=== PATIENT | female | born 1970 | race American Indian/Alaskan Native ===

== ENCOUNTER 2016-03-24 11:48 | Inpatient (IN) | payer SELFPAY ==
[2016-03-24] MEDS ORDERED: ZOFRAN IV ONE ×2 (12:50→23:30)
--- NOTE | 2016-03-24 12:50 | Emergency Department Report ---
Chief Complaint: Dizziness Stated Complaint: DIZZINESS - HPI History of Present Illness: Patient c/o sudden onset dizziness, right arm weakness and numbness, left jaw pain since this morning. Reports hx of stroke 2008. Denies chest pain, SOB, syncope. LMP 3 days ago. - Exam Vital Signs: Vital Signs 03/24/16 11:56 Temperature 98.5 F Pulse Rate 96 H Respiratory 20 Rate Blood Pressure 128/95 O2 Sat by Pulse 99 Oximetry Physical Exam: General: Moderate discomfort. Active vomiting/retching. Neuro: some slurring of speech. + asymmetric facial expression. No arm drift. Symmetric upper and lower extremity strength against resistance. MSE screening note: Focused history and physical exam performed. Due to findings the following was ordered: ED Medical Decision Making - Medical Decision Making Patient to see MD in main ED. ED Disposition for MSE Condition: Stable
[2016-03-24 14:03] LABS: Basophils % (Auto) 0.2 % (0.0-1.8); Eosinophils % (Auto) 0.7 % (0.0-4.3); Hematocrit 34.6 % (30.3-42.9); Hemoglobin 11.3 gm/dl (10.1-14.3); Mean Corpuscular HGB Conc 33 % (30-34); Mean Corpuscular Hemoglobin 27 pg (28-32); Mean Corpuscular Volume 84 fl (79-97); Platelet Count 284 K/mm3 (140-440); Red Blood Count 4.14 M/mm3 (3.65-5.03); Red Cell Distribution Width 16.9 % (13.2-15.2); White Blood Count 7.3 K/mm3 (4.5-11.0)
[2016-03-24 14:12] LABS: INR 0.98 (0.87-1.13); Partial Thromboplastin Time 26.2 Sec. (24.2-36.6)
[2016-03-24 14:22] LABS: Anion Gap 20 mmol/L; BUN/Creatinine Ratio 18.57; Blood Urea Nitrogen 13 mg/dL (7-17); Calcium 8.9 mg/dL (8.4-10.2); Carbon Dioxide 24 mmol/L (22-30); Chloride 104.1 mmol/L (98-107); Glucose 118 mg/dL (65-100); Potassium 4.2 mmol/L (3.6-5.0); Sodium 144 mmol/L (137-145)
--- NOTE | 2016-03-24 15:39 | Cat Scan Report ---
CT HEAD WITHOUT CONTRAST: HISTORY: CVA. Serial contiguous axial images were obtained through the cranium. Intravenous contrast material was not administered. The ventricles are normal in size and appearance. There is no mass effect or midline shift. No areas of abnormally increased or decreased attenuation are seen. No mass lesion is seen. The mastoid air cells and visualized portions of the sinuses are normal. IMPRESSION: Cranial CT scan within normal limits.
[2016-03-25] MEDS ORDERED: ANTIVERT PO ONE (00:37)
--- NOTE | 2016-03-25 00:43 | Emergency Department Report ---
HPI - General Chief Complaint: Dizziness Time Seen by Provider: 03/25/16 00:23 - HPI HPI: Room 21 The patient is a 45-year-old female presenting with chief complaint of dizziness and syncope. Patient states she went to work this morning at 08:30 began to feel dizzy for approximately 30 minutes. Patient states the dizziness slowly subsided and eventually she went to lunch. At 10:45 after lunch she states the dizziness returned and worsened. The patient states his dizziness has been constant since 10:45. The patient states she sat down and coworkers were fanning her. Coworkers reported the patient had slurred speech and then lost consciousness. Patient complained of intermittent right hand numbness. Patient admits to nausea and dizziness. 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 Approximately 3-4 beers and 2 mixed drinks daily) - Medications Home Medications: Home Medications Medication Instructions Recorded Confirmed Last Taken Type ALBUTEROL Inhaler [ProAir HFA 2 puff IH QID PRN #1 inha 01/29/16 Unknown Rx Inhaler] Azithromycin [Zithromax TAB] 250 mg PO QDAY #5 tablet 01/29/16 Unknown Rx predniSONE [Deltasone] 20 mg PO QDAY #5 tab 01/29/16 Unknown Rx ED Review of Systems ROS: Stated complaint: DIZZINESS Other details as noted in HPI Comment: All other systems reviewed and negative Constitutional: denies: chills, fever Eyes: denies: eye pain, eye discharge, vision change ENT: denies: ear pain, throat pain Respiratory: denies: cough, shortness of breath, wheezing Cardiovascular: denies: chest pain, palpitations Endocrine: no symptoms reported Gastrointestinal: nausea, vomiting Genitourinary: denies: urgency, dysuria, discharge Musculoskeletal: denies: back pain, joint swelling, arthralgia Skin: denies: rash, lesions Neurological: vertigo. denies: headache Psychiatric: denies: anxiety, depression Hematological/Lymphatic: denies: easy bleeding, easy bruising Physical Exam - Physical Exam Vital Signs: Vital Signs 03/24/16 03/24/16 03/25/16 11:56 23:11 00:10 Temperature 98.5 F 98.4 F 98.4 F Pulse Rate 96 H 93 H 82 Respiratory 20 18 12 Rate Blood Pressure 128/95 Blood Pressure 128/92 119/68 [Right] O2 Sat by Pulse 99 97 97 Oximetry Physical Exam: GENERAL: The patient is well-developed well-nourished female lying on stretcher not appearing to be in acute distress. [] HEENT: Normocephalic. Atraumatic. Extraocular motions are intact. Patient has moist mucous membranes. 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 Right lateral nystagmus present NECK: Supple. No meningitic signs are noted. Trachea midline CHEST/LUNGS: Clear to auscultation. There is no respiratory distress noted. HEART/CARDIOVASCULAR: Regular. There is no tachycardia. There is no gallop rub or murmur. ABDOMEN: Abdomen is soft, nontender. Patient has normal bowel sounds. There is no abdominal distention. SKIN: There is no rash. There is no edema. There is no diaphoresis. NEURO: The patient is awake, alert, and oriented. The patient is cooperative. Cranial nerves II through XII grossly intact with exception of cranial nerve VII on the left secondary to Rhodes's palsy. The patient has normal speech. Paper Spooler 5+5 bilaterally, no drift, normal sensation throughout. There is no pronator drift, moves all extremities well MUSCULOSKELETAL: There is no evidence of acute injury. ED Course Vital Signs 03/24/16 03/24/16 03/25/16 11:56 23:11 00:10 Temperature 98.5 F 98.4 F 98.4 F Pulse Rate 96 H 93 H 82 Respiratory 20 18 12 Rate Blood Pressure 128/95 Blood Pressure 128/92 119/68 [Right] O2 Sat by Pulse 99 97 97 Oximetry ED Medical Decision Making - Lab Data Result diagrams: 03/24/16 13:46 03/24/16 13:46 Laboratory Tests 03/24/16 03/24/16 03/24/16 12:17 13:46 13:46 WBC 7.3 RBC 4.14 Hgb 11.3 Hct 34.6 MCV 84 MCH 27 L MCHC 33 RDW 16.9 H Plt Count 284 Lymph % (Auto) 12.3 L [place] % (Auto) 4.4 Eos % (Auto) 0.7 Baso % (Auto) 0.2 Lymph # 0.9 L [place] # 0.3 Eos # 0.0 Baso # 0.0 Seg Neutrophils % 82.4 H Seg Neutrophils # 6.1 PT 12.9 INR 0.98 APTT 26.2 Thrombin Time Sodium Potassium Chloride Carbon Dioxide Anion Gap BUN Creatinine Estimated GFR BUN/Creatinine Ratio Glucose POC Glucose 116 H Calcium Troponin T 03/24/16 03/24/16 13:46 13:46 WBC RBC Hgb Hct MCV MCH MCHC RDW Plt Count Lymph % (Auto) [place] % (Auto) Eos % (Auto) Baso % (Auto) Lymph # [place] # Eos # Baso # Seg Neutrophils % Seg Neutrophils # PT INR APTT Thrombin Time 16.3 Sodium 144 Potassium 4.2 Chloride 104.1 Carbon Dioxide 24 Anion Gap 20 BUN 13 Creatinine 0.7 Estimated GFR > 60 BUN/Creatinine Ratio 18.57 Glucose 118 H POC Glucose Calcium 8.9 Troponin T < 0.010 - EKG Data -: EKG Interpreted by Me EKG shows normal: sinus rhythm Rate: normal - EKG Data When compared to previous EKG there are: no significant change Interpretation: unchanged when compared t (03/27/2015) - Radiology Data Radiology results: report reviewed (CT head), image reviewed (CT head) CT head (read by radiologist)-cranial CT scan within normal limits - Differential Diagnosis vertigo, TIA, ICH Critical care attestation.: If time is entered above; I have spent that time in minutes in the direct care of this critically ill patient, excluding procedure time. ED Disposition Clinical Impression: Syncope, Dizziness, Transient neurological symptoms Disposition: OP ADMITTED IP TO THIS HOSP Is pt being admited?: Yes Does the pt Need Aspirin: Yes Condition: Fair Instructions: Syncope (ED) Time of Disposition: 00:45 (hospitalist paged)
--- NOTE | 2016-03-25 01:18 | Admit Criteria Form ---
Admission Criteria Documentation: DIZZINESS Clinical Indications for Admission to Inpatient Care (Place 'X' for any and all applicable criteria): Admission is indicated for ANY ONE of the following(1)(2)(3)(4): [X]I. Inpatient admission required rather than observation care (Also use Dizziness: Observation Care as appropriate) because of ANY ONE of the following: [ ]a) Hemodynamic instability that is severe or persistent [ X]b) Signs or symptoms that are severe or persistent (eg, vomit, orthostasis, inability to ambulate) [ ]c) Cardiac arrhythmias of immediate concern [ ]d) Severe (new) neurologic findings requiring inpatient care as indicated by ANY ONE of the following(6)(7): [ ]1) Cerebral bleeding, ischemia, or vasospasm(8)(9) [ ]2) Increased intracranial pressure or hydrocephalus(10)(11)(12) [ ]3) Papilledema [ ]4) Cerebral edema [ ]5) Mass effect on CT scan [ ]e) Continuous IV infusion of anticoagulation, platelet inhibitor, vasoactive, or antiarrhythmic medication [ ]f) Cerebral bleeding, hydrocephalus, or vasospasm monitoring(14) [ ]g) Increased intracranial pressure or cerebral edema monitoring [ ]h) Vomiting that is severe or persistent [ ]i) Other condition, treatment or monitoring requiring inpatient admission [ ]II. A suspected etiology that requires admission for treatment [ ]III. Acute bacterial labyrinthitis [ ]IV. Cerebellar, brainstem, or cerebral ischemia or hemorrhage (5) Extended stay beyond goal length of stay may be needed for evaluating and treating a specific cause of dizziness, including(32) [ ]a) Head injury (Also use Traumatic Brain Injury, Nonsurgical Treatment guideline) [ ]b) New-onset vertebrobasilar vascular insufficiency [ ]c) Acute Meniere disease with intractable symptoms [ ]d) Cardiac arrhythmias or conduction defects [ ]e) Acute neurologic event causing dizziness [ ]f) Myocardial ischemia [ ]g) Acute bacterial labyrinthitis. [ ]h) Severe acute vestibular neuronitis The original [employer] content created by [employer] has been revised. The portions of the content which have been revised are identified through the use of italic text or in bold, and [employer] has neither reviewed nor approved the modified material. All other unmodified content is copyright [facility]. Please see references footnoted in the original [facility] edition 2016 Admission Criteria Met: Yes
--- NOTE | 2016-03-25 02:18 | History and Physical Report ---
History of Present Illness Date of examination: 03/25/16 History of present illness: 45 -year-old woman a history of CVA, benign tumor of the brain, asthma, Rhodes's palsy comes emergency room because she felt faint at work. Also complaining of feeling dizzy and almost passing out. She was also noted to have slurred speech , it's unclear how long the symptoms last for Patient denies chest pain, palpitation, shortness of breath, cough, abdominal pain, hematochezia, dysuria, frequency, , fever chills, polydipsia polyuria, hot or cold intolerance, easy bruisability, or rash or bleeding from mucosal membrane, rhinorrhea, epistaxis, earache, tinnitus, blurry vision, eye discharge , anxiety, depression. Other review of systems negative PAST SURGICAL HISTORY:tubal ligation SOCIAL HISTORY: 4 beers/ days plus Shots, no tobacco or drugs FAMILY HISTORY: Hypertension Medications and Allergies Allergies Allergy/AdvReac Type Severity Reaction Status Date / Time ibuprofen [From Motrin] AdvReac Unknown Verified 03/27/15 05:59 Home Medications Medication Instructions Recorded Confirmed Last Taken Type ALBUTEROL Inhaler [ProAir HFA 2 puff IH QID PRN #1 inha 01/29/16 03/25/16 Unknown Rx Inhaler] Exam - Physical Exam Narrative exam: Gen. appearance: Patient lying in bed, no apparent distress HEENT: Normocephalic, atraumatic, pupils equally round and reactive to light, extraocular movement intact, and no sclericterus,. No JVD or thyromegaly or nodule,neck supple, no carotid bruit ,mucous membranes moist, no exudate or erythema Heart: S1, S2, regular rate and rhythm Lungs: Clear to auscultation bilaterally, breathing comfortable Abdomen: Positive bowel sounds, nontender, nondistended, no organomegaly Extremity: No edema, cyanosis, clubbing Skin: No rash, nodules, warm, dry Neuro: Oriented 3, cranial nerves II-12 intact, speech is fluent, right arm 4/5 , no paresthesia - Constitutional Vitals: Temp Pulse Resp BP Pulse Ox 98.4 F 82 12 119/68 97 03/25/16 00:10 03/25/16 00:10 03/25/16 00:10 03/25/16 00:10 03/25/16 00:10 Results - Labs CBC & Chem 7: 03/24/16 13:46 03/24/16 13:46 Labs: Abnormal lab results 03/24/16 03/24/16 03/24/16 Range/Units 12:17 13:46 13:46 MCH 27 L (28-32) pg RDW 16.9 H (13.2-15.2) % Lymph % (Auto) 12.3 L (13.4-35.0) % Lymph # 0.9 L (1.2-5.4) K/mm3 Seg Neutrophils % 82.4 H (40.0-70.0) % Glucose 118 H (65-100) mg/dL POC Glucose 116 H (70-105) - Imaging and Cardiology CT Scan - head: report reviewed Assessment and Plan Acute CVA Near-syncope Asthma 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
[2016-03-25] MEDS ORDERED: REGLAN PO PRN (08:28)
[2016-03-25] MEDS ORDERED: MILK OF MAGNESIA PO PRN (08:28)
[2016-03-25] MEDS ORDERED: SODIUM CHLORIDE FLUSH SYRINGE 10 ML IV PRN (08:28)
[2016-03-25] MEDS ORDERED: DULCOLAX PR PRN (08:28)
[2016-03-25] MEDS ORDERED: ZOFRAN IV PRN (08:28)
[2016-03-25 09:12] LABS: Creatine Kinase 134 units/L (30-135); Creatine Kinase MB 1.4 ng/mL (0.0-4.0)
[2016-03-25] MEDS ORDERED: NACL ONE (09:50)
[2016-03-25] MEDS: LOVENOX SUB-Q SCH (10:20)
[2016-03-25] MEDS: PLAVIX PO SCH (10:20)
--- NOTE | 2016-03-25 14:02 | Cat Scan Report ---
CT ANGIOGRAPHY OF THE CHEST: HISTORY: Chest pain and dyspnea. FINDINGS: There is no evidence of pulmonary emboli. The lungs are clear. There is no pleural fluid. The mediastinum and hilar regions are normal. There are no axillary abnormalities. IMPRESSION: Normal study.
--- NOTE | 2016-03-25 16:39 | Magnetic Resonance Report ---
MRI of the brain without contrast. Procedure: Routine brain protocol without contrast. Findings: The posterior fossa is normal. The ventricles are normal in size and contour. There are no masses or extra-axial collections. The mahan-white matter junction is normal. There are no areas of restricted diffusion. The pituitary gland is normal. The visualized extracranial structures are unremarkable. Impression: Normal study.
--- NOTE | 2016-03-25 18:11 | Echocardiography Report ---
Transthoracic Echocardiogram Indication: CVA BP: 112/66 HR: 82 Findings Procedure Info: The study quality is fair. The study is technically limited due to patient body habitus. Left Ventricle: The left ventricle is not well visualized. The left ventricular chamber size is mildly dilated. Mild concentric left ventricular hypertrophy is observed. Global left ventricular systolic function is at the lower limits of normal. The estimated ejection fraction is 45-50%. Left Atrium: The left atrial chamber size is normal. Right Ventricle: The right ventricle is not well visualized. The right ventricular cavity size is normal. The right ventricular global systolic function is normal. Right Atrium: The right atrium is not well visualized. The right atrial cavity size is normal. Aortic Valve: The aortic valve is not well visualized. The aortic valve leaflets are mildly thickened. There is trace of aortic regurgitation. There is no evidence of aortic stenosis. Mitral Valve: The mitral valve leaflets appear myxomatous. The mitral valve leaflets are mildly thickened. There is mild mitral regurgitation. There is no evidence of mitral stenosis. Tricuspid Valve: The tricuspid valve is not well visualized. There is trace tricuspid regurgitation. No pulmonary hypertension is noted. There is no tricuspid stenosis. Pulmonic Valve: The pulmonic valve is not well visualized. There is trace pulmonic regurgitation. There is no pulmonic stenosis. Pericardium: There is no pericardial effusion. No pleural effusion is present. Aorta: There is no dilatation of the aortic root. Venous: The inferior vena cava is not visualized. Measurements Chambers MM Name Value Normal Range IVSd (MM) 0.72 cm (0.6 - 1.1) LVPWd (MM) 0.67 cm (0.6 - 1.1) IVS:LVPW ratio 1.07 ratio - LVIDd (MM) 5.24 cm (3.7 - 5.6) LVIDs (MM) 3.27 cm (2 - 2.8) LV FS (Teichholz) (MM) 37.6 % - LV FS (cube) (MM) 37.6 % - EF Teichholz (MM) 67.3 % - Ao root diameter (MM) 3.1 cm (2 - 3.7) LA dimension (AP) MM 3.4 cm (1.9 - 4) LA:Ao ratio (MM) 1.1 ratio - AV cusp separation (MM) 2 cm (1.5 - 2.6) Chambers 2D Name Value Normal Range IVSd (2D) 0.62 cm (0.6 - 1.1) LVPWd 0.6 cm - LVPWd (2D) 0.6 cm (0.6 - 1.1) IVS:LVPW ratio (2D) 1.04 ratio - LVIDd 4.3 cm - LVIDs 2.9 cm - LVIDd (2D) 4.31 cm (3.7 - 5.6) LVIDs (2D) 2.92 cm (2 - 3.8) LV FS (Teichholz) (2D) 32.3 % - LV FS (cube) (2D) 32.3 % - LV EF (2D) 60 % - EF Teichholz (2D) 60.7 % - LA dimension 2.9 cm - Ao root diameter (2D) 2.7 cm (2 - 3.7) LA dimension (AP) 2D 2.9 cm (1.9 - 4) LA:Ao ratio (2D) 1.07 ratio - Volumes/Mass Name Value Normal Range LA ESV SP 4CH (MOD) 24 ml - LV EDV SP 4CH (MOD) 114 ml - LV ESV SP 4CH (MOD) 42 ml - EF SP 4CH (MOD) 63 % - Diastolic/Systolic Function Name Value Normal Range MV E-wave Vmax 0.79 m/sec - MV deceleration time 225 msec - MV A-wave Vmax 0.72 m/sec - MV E:A ratio 1.1 ratio - LV septal e' Vmax 0.1 m/sec - LV lateral e' Vmax 0.12 m/sec - LV E:e' septal ratio 8.3 ratio - LV E:e' lateral ratio 6.4 ratio - Aortic Valve Name Value Normal Range AV Vmax 1.38 m/sec - AV VTI 20.7 cm - AV peak gradient 8 mmHg - AV mean gradient 4 mmHg - LVOT diameter 1.8 cm - LVOT Vmax 1.1 m/sec - LVOT peak gradient 5 mmHg - UMM (continuity Vmax) 2.02 cm2 - Tricuspid Valve Name Value Normal Range TR Vmax 2.17 m/sec - TR peak gradient 19 mmHg - Pulmonic Valve/Qp:Qs Name Value Normal Range PV Vmax 0.62 m/sec - PV peak gradient 2 mmHg - PV acceleration time 99 msec -
[2016-03-25 21:35] LABS: Creatine Kinase MB 1.2 ng/mL (0.0-4.0)
[2016-03-25 21:36] LABS: Creatine Kinase 114 units/L (30-135)
[2016-03-25] MEDS ORDERED: ZOCOR PO SCH (22:00)
--- NOTE | 2016-03-26 04:32 | Event Note ---
Date: 03/25/16 Pt seen and evaluated while boarding in ED. Discussed care plan with patient. NO significant new physical exam findings.
[2016-03-26] MEDS: LOVENOX SUB-Q SCH (11:32)
[2016-03-26] MEDS: PLAVIX PO SCH (11:32)
[2016-03-26 11:44] VITALS: BP 122/76
--- NOTE | 2016-03-26 14:24 | Discharge Summary ---
Providers - Providers Date of Admission: 03/25/16 02:13 Date of discharge: 03/26/16 Attending physician: ELISABETH LEE Primary care physician: VP PURCHASING Hospitalization Condition: Fair Disposition: DISCHARGED TO HOME OR SELFCARE Core Measure Documentation - Palliative Care Palliative Care/ Comfort Measures: Not Applicable - Core Measures Any of the following diagnoses?: none Exam - Constitutional Vitals: Temp Pulse Resp BP Pulse Ox 98.7 F 86 20 122/76 100 03/26/16 11:43 03/26/16 11:43 03/26/16 11:43 03/26/16 11:43 03/26/16 11:54 General appearance: Present: no acute distress, well-nourished - EENT Eyes: Present: PERRL, EOM intact - Neck Neck: Present: supple, normal ROM - Respiratory Respiratory effort: normal Respiratory: negative: rales, rhonchi, wheezing - Cardiovascular Rhythm: regular Heart Sounds: Present: S1 & S2 - Extremities Extremities: no ischemia, pulses intact, pulses symmetrical Peripheral Pulses: within normal limits - Abdominal General gastrointestinal: Present: soft, non-tender, non-distended, normal bowel sounds - Integumentary Integumentary: Present: clear, warm - Musculoskeletal Musculoskeletal: strength equal bilaterally, generalized weakness - Psychiatric Psychiatric: appropriate mood/affect, cooperative - Neurologic Neurologic: moves all extremities Plan Activity: advance as tolerated, other (Walker as needed) Diet: low fat, low salt Durable Medical Equipment Needed Upon Discharge: Walker-Rolling Follow up with: PRIMARY CARE, [Primary Care Provider] - 3-5 Days Prescriptions: Clopidogrel [Plavix] 75 mg PO DAILY #30 tablet Simvastatin [Zocor TAB] 20 mg PO QHS #30 tablet
--- NOTE | 2016-03-29 08:13 | Vascular Lab Report ---
CAROTID DUPLEX STUDY: RIGHT PSVEDV CCA PROX:[id number] CCA DIST: 8325 ICA PROX: 5921 ICA MID: 6129 ICA DIST: 5327 ECA: 66 VERT: 46 20 LEFT PSVEDV CCA PROX:[id number] CCA DIST: 7528 ICA PROX: 6318 ICA MID: 7634 ICA DIST: 5529 ECA: 74` VERT: 33 17 REASON FOR EXAM: Stroke. COMMENTS ON THE RIGHT: Doppler frequency analysis is consistent with 16 to 49 percent diameter reduction of the internal carotid artery. Minimal amount of plaque is seen. The common carotid artery is patent. The external carotid artery is patent. The vertebral artery has antegrade flow. COMMENTS ON THE LEFT: Doppler frequency analysis is consistent with 16 to 49 percent diameter reduction of the internal carotid artery. Minimal amount of plaque is seen. The common carotid artery is patent. The external carotid artery is patent. The vertebral artery has antegrade flow. IMPRESSION: Less than 50% diameter reduction in the internal carotid arteries bilaterally. Consider repeat carotid artery duplex in 12 months.
== END 2016-03-26 18:22 | disposition home or self-care (01) | DRG 66 ==
LOC: ED 11:48 → 4A 03-25 02:13
PROVIDERS: ADMIT Internal Medicine; ATTEND Internal Medicine
DX: I63.9 Cerebral infarction, unspecified (principal); G80.8 Other cerebral palsy; G51.0 Bell's palsy; F17.200 Nicotine dependence, unspecified, uncomplicated; J45.909 Unspecified asthma, uncomplicated; Z98.51 Tubal ligation status; Z85.841 Personal history of malignant neoplasm of brain; Z82.49 Family history of ischemic heart disease and other diseases of the circulatory system; Z88.6 Allergy status to analgesic agent
CPT/HCPCS: 36415; 70450; 70551; 71275; 80048; 80061; 82550; 82553; 82962; 84484; 85025; 85379; 85610; 85670; 85730; 93005; 93010; 93306; 93880; 96374; J1650; J2405; Q9967

== ENCOUNTER 2018-06-20 07:47 | Inpatient (IN) | payer SELFPAY ==
[2018-06-20 08:18] LABS: Basophils % (Auto) 0.5 % (0.0-1.8); Eosinophils # (Auto) 0.1 K/mm3 (0.0-0.4); Eosinophils % (Auto) 0.8 % (0.0-4.3); Hematocrit 37.1 % (30.3-42.9); Hemoglobin 12.4 gm/dl (10.1-14.3); Lymphocytes # (Auto) 1.5 K/mm3 (1.2-5.4); Lymphocytes % (Auto) 24.6 % (13.4-35.0); Mean Corpuscular HGB Conc 33 % (30-34); Mean Corpuscular Volume 87 fl (79-97); Monocytes # (Auto) 0.5 K/mm3 (0.0-0.8); Monocytes % (Auto) 7.9 % (0.0-7.3); Platelet Count 310 K/mm3 (140-440); Red Blood Count 4.26 M/mm3 (3.65-5.03); Red Cell Distribution Width 15.6 % (13.2-15.2)
--- NOTE | 2018-06-20 08:25 | Cat Scan Report ---
CT HEAD WITHOUT CONTRAST: HISTORY: Neurological deficit, stroke. TECHNIQUE: Sequential 2.5mm CT images. COMPARISON: 03/07/18. FINDINGS: Cerebral Parenchyma: Within normal limits. Cerebellum: Within normal limits. Brainstem: Within normal limits. Ventricles: Normal. Sella: Normal. Extra-axial spaces: Normal. Basal Cisterns: Normal. Intracranial Hemorrhage: None. Midline Shift: None. Calvarium: Normal. Sinuses: Normal. Mastoid Air Cells: Normal. Visualized Orbits: Normal. IMPRESSION: Cranial CT scan within normal limits. These findings were discussed with Dr. Trejo in the emergency department at 0818 hours EST.
[2018-06-20 08:28] LABS: INR 0.97 (0.87-1.13)
[2018-06-20 08:29] LABS: Partial Thromboplastin Time 26.9 Sec. (24.2-36.6); Thrombin Time 17.2 Sec. (15.1-19.6)
[2018-06-20 08:32] LABS: BUN/Creatinine Ratio 14; Blood Urea Nitrogen 7 mg/dL (7-17); Calcium 8.7 mg/dL (8.4-10.2); Hemolysis Index 8
--- NOTE | 2018-06-20 08:39 | Emergency Department Report ---
ED Neuro Deficit HPI - General Chief Complaint: Neuro Symptoms/Deficit Stated Complaint: THROAT/CHEST/EAR PAIN Time Seen by Provider: 06/20/18 08:01 Source: patient Mode of arrival: Ambulatory Limitations: No Limitations - History of Present Illness Initial Comments: [facility] TeleNeurology Consult Services Impression: Stroke, small vessel, right hemispheric? previous left facial weakness, now with worsening dysarthria Not a tpa candidate due to: out of therapeutic window Does not meet LVO screening criteria (no aphasia, neglect, gaze deviation, dense hemiparesis, visual field deficits on exam); therefore, advanced imaging not recommended. Differential Diagnosis: 1. Cardioembolic stroke 2. Small vessel disease/lacune 3. Thromboembolic, [id number] mechanism 4. Hypercoagulable state-related infarct 5. Transient ischemic attack 6. Thrombotic mechanism, large artery disease Comments: [facility] contacted: [phone] [facility] at bedside: 809 NIHSS assessment time: 809 Recommendations: admit stroke/telemetry neuro checks dvt prophy dysphagia screen asa if no contraindications head of bed flat iv fluids ns inpatient neurology consultation Inpatient stroke evaluation as per Neurology/ Internal Medicine Discussed with ED MD --------- CC dysarthria History of Present Illness Patient is a 47 year old woman who comes to the Ed for slurred speech and difficulty swallowing since yesterday. She also has worsening left facial weakness. The symptoms started around 1400 yesterday and worsened around midni ght today. Previous stroke with left facial weakness. Last stroke in 2018, she takes Plavix. Diagnostic: Ct head without contrast: no acute findings per rad read Medical Decision Making: - Extensive number of diagnosis or management options are considered above. - Extensive amount of complex data reviewed. - High risk of complication and/or morbidity or mortality are associated with differential diagnostic considerations above. - There may be Uncertain outcome and increased probability of prolonged functional impairment or high probability of severe prolonged functional impairment associated with some of these differential diagnosis. Medical Data Reviewed: 1.Data reviewed include clinical labs, radiology, Medical Tests; 2.Tests results discussed w/performing or interpreting physician; 3.Obtaining/reviewing old medical records; 4.Obtaining case history from another source; 5.Independent review of image, tracing or specimen. Patient was informed the Neurology Consult would happen via telehealth (remote video) and consented to receiving care in this manner. - Related Data Home Medications: Previous Rx's Medication Instructions Recorded Last Taken Type ALBUTEROL Inhaler (OR & NICU) 2 puff IH QID PRN #1 inha 03/10/18 Unknown Rx [ProAir HFA Inhaler] Clopidogrel [Plavix] 75 mg PO DAILY #30 tablet 03/10/18 Unknown Rx Pravastatin [Pravachol] 40 mg PO QHS #30 tablet 03/10/18 Unknown Rx levETIRAcetam [Keppra TAB] 750 mg PO BID #60 tablet 03/10/18 Unknown Rx oxyCODONE /ACETAMINOPHEN [Percocet 1 tab PO Q4H PRN #20 tablet 03/10/18 Unknown Rx 5/325 mg] Allergies/Adverse Reactions: Allergies Allergy/AdvReac Type Severity Reaction Status Date / Time ibuprofen [From Motrin] AdvReac Unknown Verified 03/27/15 05:59 ED Review of Systems ROS: Stated complaint: THROAT/CHEST/EAR PAIN Other details as noted in HPI ED Past Medical Hx - Past Medical History Hx CVA: Yes (2008 no deficiets) Hx Arthritis: Yes Hx Asthma: Yes Additional medical history: BELLS PALSY (left facial weakness), Brain tumor - Surgical History Additional Surgical History: Tubal ligation - Social History Smoking Status: Never Smoker - Medications Home Medications: Home Medications Medication Instructions Recorded Confirmed Last Taken Type ALBUTEROL Inhaler (OR & NICU) 2 puff IH QID PRN #1 inha 03/10/18 Unknown Rx [ProAir HFA Inhaler] Clopidogrel [Plavix] 75 mg PO DAILY #30 tablet 03/10/18 Unknown Rx Pravastatin [Pravachol] 40 mg PO QHS #30 tablet 03/10/18 Unknown Rx levETIRAcetam [Keppra TAB] 750 mg PO BID #60 tablet 03/10/18 Unknown Rx oxyCODONE /ACETAMINOPHEN [Percocet 1 tab PO Q4H PRN #20 tablet 03/10/18 Unknown Rx 5/325 mg] ED Neuro Physical Exam - General Limitations: No Limitations Suspected Stroke: Yes - NIHSS Assessment Interval: Baseline 1a. Level of Consciousness: alert/keenly responsive 1b. LOC Questions: answers both correctly 1c. LOC Commands: performs tasks correctly 2. Best Gaze: normal 3. Visual: no visual loss 4. Facial Palsy: partial paralysis 5b. Motor Arm Right: no drift 5a. Motor Arm Left: no drift 6a. Motor Leg Left: no drift 6b. Motor Leg Right: no drift 7. Limb Ataxia: absent 8. Sensory: mild/moderate sensory loss 9. Best Language: no aphasia 10. Dysarthria: mild/moderate dysarthria 11. Extinction/Inattention: no abnormality Total Score: 4 Stroke Severity: Minor Stroke ED Course Vital Signs 06/20/18 06/20/18 08:08 08:15 Pulse Rate 100 H 96 H Respiratory 15 Rate Blood Pressure 149/98 O2 Sat by Pulse 97 Oximetry - Lab Data Result diagrams: 06/20/18 08:11 06/20/18 08:10 Lab Results 06/20/18 06/20/18 06/20/18 Range/Units 07:59 08:10 08:11 WBC 6.3 (4.5-11.0) K/mm3 RBC 4.26 (3.65-5.03) M/mm3 Hgb 12.4 (10.1-14.3) gm/dl Hct 37.1 (30.3-42.9) % MCV 87 (79-97) fl MCH 29 (28-32) pg MCHC 33 (30-34) % RDW 15.6 H (13.2-15.2) % Plt Count 310 (140-440) K/mm3 Lymph % (Auto) 24.6 (13.4-35.0) % [place] % (Auto) 7.9 H (0.0-7.3) % Eos % (Auto) 0.8 (0.0-4.3) % Baso % (Auto) 0.5 (0.0-1.8) % Lymph # 1.5 (1.2-5.4) K/mm3 [place] # 0.5 (0.0-0.8) K/mm3 Eos # 0.1 (0.0-0.4) K/mm3 Baso # 0.0 (0.0-0.1) K/mm3 Seg Neutrophils % 66.2 (40.0-70.0) % Seg Neutrophils # 4.1 (1.8-7.7) K/mm3 PT (12.2-14.9) Sec. INR (0.87-1.13) APTT (24.2-36.6) Sec. Thrombin Time (15.1-19.6) Sec. Sodium 144 (137-145) mmol/L Potassium 3.9 (3.6-5.0) mmol/L Chloride 105.1 (98-107) mmol/L Carbon Dioxide 26 (22-30) mmol/L Anion Gap 17 mmol/L BUN 7 (7-17) mg/dL Creatinine 0.5 L (0.7-1.2) mg/dL Estimated GFR > 60 ml/min BUN/Creatinine Ratio 14 % Glucose 143 H (65-100) mg/dL POC Glucose 139 H (70-105) Calcium 8.7 (8.4-10.2) mg/dL Troponin T < 0.010 (0.00-0.029) ng/mL 06/20/18 Range/Units 08:11 WBC (4.5-11.0) K/mm3 RBC (3.65-5.03) M/mm3 Hgb (10.1-14.3) gm/dl Hct (30.3-42.9) % MCV (79-97) fl MCH (28-32) pg MCHC (30-34) % RDW (13.2-15.2) % Plt Count (140-440) K/mm3 Lymph % (Auto) (13.4-35.0) % [place] % (Auto) (0.0-7.3) % Eos % (Auto) (0.0-4.3) % Baso % (Auto) (0.0-1.8) % Lymph # (1.2-5.4) K/mm3 [place] # (0.0-0.8) K/mm3 Eos # (0.0-0.4) K/mm3 Baso # (0.0-0.1) K/mm3 Seg Neutrophils % (40.0-70.0) % Seg Neutrophils # (1.8-7.7) K/mm3 PT 13.5 (12.2-14.9) Sec. INR 0.97 (0.87-1.13) APTT 26.9 (24.2-36.6) Sec. Thrombin Time 17.2 (15.1-19.6) Sec. Sodium (137-145) mmol/L Potassium (3.6-5.0) mmol/L Chloride (98-107) mmol/L Carbon Dioxide (22-30) mmol/L Anion Gap mmol/L BUN (7-17) mg/dL Creatinine (0.7-1.2) mg/dL Estimated GFR ml/min BUN/Creatinine Ratio % Glucose (65-100) mg/dL POC Glucose (70-105) Calcium (8.4-10.2) mg/dL Troponin T (0.00-0.029) ng/mL Critical care attestation.: If time is entered above; I have spent that time in minutes in the direct care of this critically ill patient, excluding procedure time. ED Disposition Clinical Impression: Stroke determined by clinical assessment Disposition: OP ADMIT IP TO THIS HOSP Is pt being admited?: Yes Condition: Stable Referrals: LAQUITA GONZALEZ MD [Primary Care Provider] - 3-5 Days
--- NOTE | 2018-06-20 10:52 | Emergency Department Report ---
ED General Adult HPI - General Chief complaint: Neuro Symptoms/Deficit Stated complaint: THROAT/CHEST/EAR PAIN Time Seen by Provider: 06/20/18 08:01 Source: patient Mode of arrival: Ambulatory Limitations: No Limitations - History of Present Illness Initial comments: Patient is a 47-year-old female no significant past medical history who presents with left facial droop that occurred today patient denies any nausea or vomiting she says this occurred around 2 PM yesterday. Patient is also complaining of slurred speech but has no altered mental status talking makes the symptoms better nothing makes it worse. She says this happened in 2018 patient denies being in any pain. - Related Data Previous Rx's Medication Instructions Recorded Last Taken Type ALBUTEROL Inhaler (OR & NICU) 2 puff IH QID PRN #1 inha 03/10/18 Unknown Rx [ProAir HFA Inhaler] Clopidogrel [Plavix] 75 mg PO DAILY #30 tablet 03/10/18 Unknown Rx Pravastatin [Pravachol] 40 mg PO QHS #30 tablet 03/10/18 Unknown Rx levETIRAcetam [Keppra TAB] 750 mg PO BID #60 tablet 03/10/18 Unknown Rx oxyCODONE /ACETAMINOPHEN [Percocet 1 tab PO Q4H PRN #20 tablet 03/10/18 Unknown Rx 5/325 mg] Allergies Allergy/AdvReac Type Severity Reaction Status Date / Time ibuprofen [From Motrin] AdvReac Unknown Verified 03/27/15 05:59 ED Review of Systems ROS: Stated complaint: THROAT/CHEST/EAR PAIN Other details as noted in HPI Constitutional: denies: chills, fever Eyes: denies: eye pain, eye discharge, vision change ENT: denies: ear pain, throat pain Respiratory: denies: cough, shortness of breath, wheezing Cardiovascular: denies: chest pain, palpitations Endocrine: no symptoms reported Gastrointestinal: denies: abdominal pain, nausea, diarrhea Genitourinary: denies: urgency, dysuria, discharge Musculoskeletal: denies: back pain, joint swelling, arthralgia Skin: denies: rash, lesions Neurological: other (left facial droop). denies: headache, weakness, paresthesias Psychiatric: denies: anxiety, depression Hematological/Lymphatic: denies: easy bleeding, easy bruising ED Past Medical Hx - Past Medical History Hx CVA: Yes (2009 no deficiets) Hx Arthritis: Yes Hx Asthma: Yes Additional medical history: BELLS PALSY (left facial weakness), Brain tumor - Surgical History Additional Surgical History: Tubal ligation - Social History Smoking Status: Never Smoker - Medications Home Medications: Home Medications Medication Instructions Recorded Confirmed Last Taken Type ALBUTEROL Inhaler (OR & NICU) 2 puff IH QID PRN #1 inha 03/10/18 Unknown Rx [ProAir HFA Inhaler] Clopidogrel [Plavix] 75 mg PO DAILY #30 tablet 03/10/18 Unknown Rx Pravastatin [Pravachol] 40 mg PO QHS #30 tablet 03/10/18 Unknown Rx levETIRAcetam [Keppra TAB] 750 mg PO BID #60 tablet 03/10/18 Unknown Rx oxyCODONE /ACETAMINOPHEN [Percocet 1 tab PO Q4H PRN #20 tablet 03/10/18 Unknown Rx 5/325 mg] ED Physical Exam - General Limitations: No Limitations General appearance: alert, in no apparent distress - Head Head exam: Present: atraumatic, normocephalic - Eye Eye exam: Present: normal appearance - ENT ENT exam: Present: mucous membranes moist - Neck Neck exam: Present: normal inspection - Respiratory Respiratory exam: Present: normal lung sounds bilaterally. Absent: respiratory distress - Cardiovascular Cardiovascular Exam: Present: regular rate, normal rhythm. Absent: systolic murmur, diastolic murmur, rubs, gallop - GI/Abdominal GI/Abdominal exam: Present: soft, normal bowel sounds - Extremities Exam Extremities exam: Present: normal inspection - Back Exam Back exam: Present: normal inspection - Neurological Exam Neurological exam: Present: alert, oriented X3, other (left CN 7 palsy ) - Psychiatric Psychiatric exam: Present: normal affect, normal mood - Skin Skin exam: Present: warm, dry, intact, normal color. Absent: rash ED Course Vital Signs 06/20/18 06/20/18 06/20/18 08:08 08:15 08:30 Pulse Rate 100 H 96 H 96 H Respiratory 15 14 Rate Blood Pressure 149/98 139/93 O2 Sat by Pulse 97 95 Oximetry 06/20/18 06/20/18 08:42 08:45 Pulse Rate 91 H Respiratory 18 16 Rate Blood Pressure 133/81 O2 Sat by Pulse 97 Oximetry ED Medical Decision Making - Lab Data Result diagrams: 06/20/18 08:11 04/09/19 08:10 Lab Results 06/20/18 06/20/18 06/20/18 Range/Units 07:59 08:10 08:11 WBC 6.3 (4.5-11.0) K/mm3 RBC 4.26 (3.65-5.03) M/mm3 Hgb 12.4 (10.1-14.3) gm/dl Hct 37.1 (30.3-42.9) % MCV 87 (79-97) fl MCH 29 (28-32) pg MCHC 33 (30-34) % RDW 15.6 H (13.2-15.2) % Plt Count 310 (140-440) K/mm3 Lymph % (Auto) 24.6 (13.4-35.0) % [place] % (Auto) 7.9 H (0.0-7.3) % Eos % (Auto) 0.8 (0.0-4.3) % Baso % (Auto) 0.5 (0.0-1.8) % Lymph # 1.5 (1.2-5.4) K/mm3 [place] # 0.5 (0.0-0.8) K/mm3 Eos # 0.1 (0.0-0.4) K/mm3 Baso # 0.0 (0.0-0.1) K/mm3 Seg Neutrophils % 66.2 (40.0-70.0) % Seg Neutrophils # 4.1 (1.8-7.7) K/mm3 PT (12.2-14.9) Sec. INR (0.87-1.13) APTT (24.2-36.6) Sec. Thrombin Time (15.1-19.6) Sec. Sodium 144 (137-145) mmol/L Potassium 3.9 (3.6-5.0) mmol/L Chloride 105.1 (98-107) mmol/L Carbon Dioxide 26 (22-30) mmol/L Anion Gap 17 mmol/L BUN 7 (7-17) mg/dL Creatinine 0.5 L (0.7-1.2) mg/dL Estimated GFR > 60 ml/min BUN/Creatinine Ratio 14 % Glucose 143 H (65-100) mg/dL POC Glucose 139 H (70-105) Calcium 8.7 (8.4-10.2) mg/dL Troponin T < 0.010 (0.00-0.029) ng/mL 06/20/18 Range/Units 08:11 WBC (4.5-11.0) K/mm3 RBC (3.65-5.03) M/mm3 Hgb (10.1-14.3) gm/dl Hct (30.3-42.9) % MCV (79-97) fl MCH (28-32) pg MCHC (30-34) % RDW (13.2-15.2) % Plt Count (140-440) K/mm3 Lymph % (Auto) (13.4-35.0) % [place] % (Auto) (0.0-7.3) % Eos % (Auto) (0.0-4.3) % Baso % (Auto) (0.0-1.8) % Lymph # (1.2-5.4) K/mm3 [place] # (0.0-0.8) K/mm3 Eos # (0.0-0.4) K/mm3 Baso # (0.0-0.1) K/mm3 Seg Neutrophils % (40.0-70.0) % Seg Neutrophils # (1.8-7.7) K/mm3 PT 13.5 (12.2-14.9) Sec. INR 0.97 (0.87-1.13) APTT 26.9 (24.2-36.6) Sec. Thrombin Time 17.2 (15.1-19.6) Sec. Sodium (137-145) mmol/L Potassium (3.6-5.0) mmol/L Chloride (98-107) mmol/L Carbon Dioxide (22-30) mmol/L Anion Gap mmol/L BUN (7-17) mg/dL Creatinine (0.7-1.2) mg/dL Estimated GFR ml/min BUN/Creatinine Ratio % Glucose (65-100) mg/dL POC Glucose (70-105) Calcium (8.4-10.2) mg/dL Troponin T (0.00-0.029) ng/mL - EKG Data -: EKG Interpreted by Me - EKG Data 06/20/18 11:29 EKG shows normal sinus rhythm no ST segment elevation noted T-wave inversion normal axis - Radiology Data Radiology results: report reviewed, image reviewed CT head: Shows no acute intracranial process - Medical Decision Making Chief medical diagnosis: Factitious disorder Differential medical diagnosis: nelson's palsy, ischemic stroke I will get blood work tell a neurology consult and head CT Patient's history is concerning for fictitious disorder however stroke must be ruled out I will admit the patient to the hospitalist service for MRI and stroke workup. Critical care attestation.: If time is entered above; I have spent that time in minutes in the direct care of this critically ill patient, excluding procedure time. ED Disposition Clinical Impression: Stroke determined by clinical assessment, Left facial numbness Disposition: DC-[id number] OP ADMIT IP TO THIS HOSP Is pt being admited?: No Does the pt Need Aspirin: No Condition: Stable Referrals: LAQUITA GONZALEZ MD [Primary Care Provider] - 3-5 Days
[2018-06-20] MEDS ORDERED: ZOFRAN IV ONE (11:27)
[2018-06-20] MEDS ORDERED: LOVENOX SUB-Q SCH (16:00)
[2018-06-20] MEDS: LOVENOX SUB-Q SCH (18:45)
[2018-06-20] MEDS ORDERED: TYLENOL PO PRN (18:57)
[2018-06-20] MEDS ORDERED: SODIUM CHLORIDE FLUSH SYRINGE 10 ML IV PRN ×2 (18:57→19:02)
[2018-06-20] MEDS ORDERED: ZOFRAN IV PRN (18:57)
[2018-06-20] MEDS ORDERED: REGLAN IV PRN (18:58)
[2018-06-20] MEDS ORDERED: PERCOCET 5/325 PO PRN (18:58)
[2018-06-20] MEDS ORDERED: D5/0.45NS 1,000 ML IV SCH (19:00)
[2018-06-20] MEDS: DILAUDID IV PRN (19:00)
[2018-06-20] MEDS ORDERED: PROAIR IH PRN (19:06)
[2018-06-20] MEDS ORDERED: DILAUDID ONE (19:13)
[2018-06-20] MEDS ORDERED: LOVENOX SUB-Q ONE (19:16)
--- NOTE | 2018-06-20 19:17 | History and Physical Report ---
History of Present Illness Date of examination: 06/20/18 Date of admission: 06/20/18 15:46 Chief complaint: Slurred speech since a.m. History of present illness: 47-year-old female with history of cerebrovascular accident and no residual deficits comes in for slurred speech since a.m. 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 Patient was seen by me in 2018 and had a Rhodes's palsy at that time. Patient is able to move her left upper and left lower extremity. Doubtful seizures as per daughter. No fever or chills. No exacerbating or relieving factors. No altered sensorium. 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 Plan to address problem: left -old Past Medical History CVA: Yes (2009 no deficits) Arthritis: Yes Asthma: Yes Additional medical history: BELLS PALSY (left facial weakness), Brain tumor Surgical History Additional Surgical History: Tubal ligation Social History Smoking Status: Never Smoker Family history Hypertension Medications Home Medications: Home Medications Medication Instructions Recorded Confirmed Last Taken Type ALBUTEROL Inhaler (OR & NICU) 2 puff IH QID PRN #1 inha 03/10/18 Unknown Rx [ProAir HFA Inhaler] Clopidogrel [Plavix] 75 mg PO DAILY #30 tablet 03/10/18 Unknown Rx Pravastatin [Pravachol] 40 mg PO QHS #30 tablet 03/10/18 Unknown Rx levETIRAcetam [Keppra TAB] 750 mg PO BID #60 tablet 03/10/18 Unknown Rx oxyCODONE /ACETAMINOPHEN [Percocet 1 tab PO Q4H PRN #20 tablet 03/10/18 Unknown Rx 5/325 mg] Review of Systems ROS: Stated complaint: THROAT/CHEST/EAR PAIN Other details as noted in HPI Constitutional: denies: chills, fever Eyes: denies: eye pain, eye discharge, vision change ENT: denies: ear pain, throat pain Respiratory: denies: cough, shortness of breath, wheezing Cardiovascular: denies: chest pain, palpitations Endocrine: no symptoms reported Gastrointestinal: denies: abdominal pain, nausea, diarrhea Genitourinary: denies: urgency, dysuria, discharge Musculoskeletal: denies: back pain, joint swelling, arthralgia Skin: denies: rash, lesions Neurological: other (left facial droop). denies: headache, weakness, paresthesias Psychiatric: denies: anxiety, depression Hematological/Lymphatic: denies: easy bleeding, easy bruising Medications and Allergies Allergies Allergy/AdvReac Type Severity Reaction Status Date / Time ibuprofen [From Motrin] AdvReac Unknown Verified 03/27/15 05:59 Home Medications Medication Instructions Recorded Confirmed Last Taken Type ALBUTEROL Inhaler (OR & NICU) 2 puff IH QID PRN #1 inha 03/10/18 06/20/18 Unknown Rx [ProAir HFA Inhaler] Clopidogrel [Plavix] 75 mg PO DAILY #30 tablet 03/10/18 06/20/18 Unknown Rx Pravastatin [Pravachol] 40 mg PO QHS #30 tablet 03/10/18 06/20/18 Unknown Rx levETIRAcetam [Keppra TAB] 750 mg PO BID 06/20/18 06/20/18 Unknown History Active Meds: Active Medications Acetaminophen (Tylenol) 650 mg PO Q4H PRN PRN Reason: Pain MILD(1-3)/Fever >100.5/THOMAS Albuterol (Proair) 2 puff IH QID PRN PRN Reason: Shortness Of Breath Clopidogrel Bisulfate (Plavix) 75 mg PO DAILY SABIHA Enoxaparin Sodium (Lovenox) 40 mg SUB-Q QDAY@1000 SABIHA Famotidine (Pepcid) 20 mg IV BID SABIHA Hydromorphone HCl (Dilaudid) 0.5 mg IV Q3H PRN PRN Reason: Pain , Severe (7-10) Dextrose/Sodium Chloride (D5/0.45ns) 1,000 mls @ 75 mls/hr IV DIRECT SABIHA Stop: 06/21/18 10:00 Metoclopramide HCl (Reglan) 10 mg IV Q6H PRN PRN Reason: Nausea And Vomiting Miscellaneous Medication (Levetiracetam [Keppra Tab]) 750 mg PO BID SABIHA Ondansetron HCl (Zofran) 4 mg IV Q8H PRN PRN Reason: Nausea And Vomiting Oxycodone/Acetaminophen (Percocet 5/325) 1 tab PO Q6H PRN PRN Reason: Pain, Moderate (4-6) Pravastatin Sodium (Pravachol) 40 mg PO QHS SABIHA Sodium Chloride (Sodium Chloride Flush Syringe 10 Ml) 10 ml IV BID SABIHA Sodium Chloride (Sodium Chloride Flush Syringe 10 Ml) 10 ml IV PRN PRN PRN Reason: LINE FLUSH Sodium Chloride (Sodium Chloride Flush Syringe 10 Ml) 10 ml IV PRN PRN PRN Reason: LINE FLUSH Exam - Constitutional Vitals: Temp Pulse Resp BP Pulse Ox 90 17 116/72 99 06/20/18 18:45 06/20/18 18:45 06/20/18 18:45 06/20/18 18:45 General appearance: Present: no acute distress, well-nourished, other (left facial palsy-lower motor neuron type. Unable to open left upper eyelid) - EENT Eyes: Present: PERRL ENT: hearing intact, clear oral mucosa - Neck Neck: Present: supple, normal ROM - Respiratory Respiratory effort: normal Respiratory: bilateral: CTA - Cardiovascular Heart rate: 78 Rhythm: regular Heart Sounds: Present: S1 & S2. Absent: rub, click - Extremities Extremities: no ischemia, pulses symmetrical, No edema Peripheral Pulses: within normal limits - Abdominal General gastrointestinal: Present: soft, non-tender, non-distended, normal bowel sounds Female genitourinary: Present: normal - Rectal Rectal Exam: deferred - Integumentary Integumentary: Present: clear, warm, dry - Musculoskeletal Musculoskeletal: gait normal, strength equal bilaterally - Psychiatric Psychiatric: appropriate mood/affect, intact judgment & insight - Neurologic Neurologic: CNII-XII intact, moves all extremities, other (slurred speech) Results - Labs CBC & Chem 7: 06/20/18 08:11 06/20/18 08:10 Labs: Laboratory Last Values WBC 6.3 K/mm3 (4.5-11.0) 06/20/18 08:11 RBC 4.26 M/mm3 (3.65-5.03) 06/20/18 08:11 Hgb 12.4 gm/dl (10.1-14.3) 06/20/18 08:11 Hct 37.1 % (30.3-42.9) 06/20/18 08:11 MCV 87 fl (79-97) 06/20/18 08:11 MCH 29 pg (28-32) 06/20/18 08:11 MCHC 33 % (30-34) 06/20/18 08:11 RDW 15.6 % (13.2-15.2) H 06/20/18 08:11 Plt Count 310 K/mm3 (140-440) 06/20/18 08:11 Lymph % (Auto) 24.6 % (13.4-35.0) 06/20/18 08:11 [place] % (Auto) 7.9 % (0.0-7.3) H 06/20/18 08:11 Eos % (Auto) 0.8 % (0.0-4.3) 06/20/18 08:11 Baso % (Auto) 0.5 % (0.0-1.8) 06/20/18 08:11 Lymph # 1.5 K/mm3 (1.2-5.4) 06/20/18 08:11 [place] # 0.5 K/mm3 (0.0-0.8) 06/20/18 08:11 Eos # 0.1 K/mm3 (0.0-0.4) 06/20/18 08:11 Baso # 0.0 K/mm3 (0.0-0.1) 06/20/18 08:11 Seg Neutrophils % 66.2 % (40.0-70.0) 06/20/18 08:11 Seg Neutrophils # 4.1 K/mm3 (1.8-7.7) 06/20/18 08:11 PT 13.5 Sec. (12.2-14.9) 06/20/18 08:11 INR 0.97 (0.87-1.13) 06/20/18 08:11 APTT 26.9 Sec. (24.2-36.6) 06/20/18 08:11 Thrombin Time 17.2 Sec. (15.1-19.6) 06/20/18 08:11 Sodium 144 mmol/L (137-145) 06/20/18 08:10 Potassium 3.9 mmol/L (3.6-5.0) 06/20/18 08:10 Chloride 105.1 mmol/L (98-107) 06/20/18 08:10 Carbon Dioxide 26 mmol/L (22-30) 06/20/18 08:10 Anion Gap 17 mmol/L 06/20/18 08:10 BUN 7 mg/dL (7-17) 06/20/18 08:10 Creatinine 0.5 mg/dL (0.7-1.2) L 06/20/18 08:10 Estimated GFR > 60 ml/min 06/20/18 08:10 BUN/Creatinine Ratio 14 % 06/20/18 08:10 Glucose 143 mg/dL (65-100) H 06/20/18 08:10 POC Glucose 139 (70-105) H 06/20/18 07:59 Calcium 8.7 mg/dL (8.4-10.2) 06/20/18 08:10 Troponin T < 0.010 ng/mL (0.00-0.029) 06/20/18 08:10 - Imaging and Cardiology EKG: report reviewed (normal sinus rhythm 92/m no acute ST-T wave changes) CT Scan - head: report reviewed Imaging and Cardiology: CT head IMPRESSION: Cranial CT scan within normal limits. Assessment and Plan Advance Directives: Yes (full code) VTE prophylaxis?: Chemical Plan of care discussed with patient/family: Yes - Patient Problems (1) TIA (transient ischemic attack) Current Visit: Yes Status: Acute Plan to address problem: Dysarthria--she had similar episodes in the past after reviewing the last few visits. Patient's dysarthria is transient and should improve spontaneously. Patient had extensive workup including MRI/MRA echocardiogram Lexiscan carotid duplex scan All were negative MRI and MRA were not ordered Echocardiogram was not ordered Carotid duplex scan was not ordered Continue Plavix Neurology consult Suspect conversion reaction Continue Plavix (2) Old cerebrovascular accident (CVA) without late effect Current Visit: No Status: Chronic Plan to address problem: After reviewing the chart and the previous visits--patient probably never had a cerebrovascular accident. MRI MRA echo carotid duplex scan done in 2017 were negative. Echo and Lexiscan done in February 2018 are negative (3) Seizure disorder Current Visit: Yes Status: Chronic Plan to address problem: Past work telemetry neurologist increase the Keppra 1000 every 12 hours (4) Hyperlipidemia Current Visit: Yes Status: Chronic Qualifiers: Hyperlipidemia type: mixed hyperlipidemia Qualified Code(s): E78.2 - Mixed hyperlipidemia Plan to address problem: Continue pravastatin (5) Asthma Current Visit: Yes Status: Chronic Qualifiers: Asthma persistence: intermittent Plan to address problem: Albuterol inhaler when necessary (6) Rhodes's palsy Current Visit: Yes Status: Chronic Plan to address problem: Patient has residual left facial paralysis. No treatment (7) DVT prophylaxis Current Visit: Yes Status: Acute Plan to address problem: Lovenox 40 mg subcutaneous daily and GI prophylaxis
[2018-06-20] MEDS ORDERED: PROVENTIL IH PRN (19:45)
[2018-06-20] MEDS ORDERED: NON-FORMULARY (Levetiracetam [Keppra Tab] 750 MG) PO SCH (22:00)
[2018-06-20] MEDS ORDERED: PRAVACHOL PO SCH (22:00)
[2018-06-20] MEDS: KEPPRA PO SCH (23:46)
[2018-06-20] MEDS: PEPCID IV SCH (23:46)
[2018-06-20] MEDS: PLAVIX PO SCH (23:46)
[2018-06-20] MEDS: SODIUM CHLORIDE FLUSH SYRINGE 10 ML IV SCH (23:47)
[2018-06-21] MEDS: DILAUDID IV PRN (05:47)
[2018-06-21 06:15] LABS: Basophils % (Auto) 0.5 % (0.0-1.8); Eosinophils # (Auto) 0.1 K/mm3 (0.0-0.4); Eosinophils % (Auto) 1.7 % (0.0-4.3); Hematocrit 35.8 % (30.3-42.9); Hemoglobin 11.9 gm/dl (10.1-14.3); Lymphocytes # (Auto) 1.3 K/mm3 (1.2-5.4); Lymphocytes % (Auto) 30.1 % (13.4-35.0); Mean Corpuscular HGB Conc 33 % (30-34); Mean Corpuscular Volume 87 fl (79-97); Monocytes # (Auto) 0.3 K/mm3 (0.0-0.8); Monocytes % (Auto) 7.5 % (0.0-7.3); Platelet Count 297 K/mm3 (140-440); Red Cell Distribution Width 15.5 % (13.2-15.2)
[2018-06-21 06:28] LABS: Alanine Aminotransferase 32 units/L (7-56); Albumin 3.7 g/dL (3.9-5); BUN/Creatinine Ratio 12; Blood Urea Nitrogen 7 mg/dL (7-17); Calcium 8.4 mg/dL (8.4-10.2); Chol/HDL Ratio 5.07 %; HDL Cholesterol 40 mg/dL (40-59); Hemolysis Index 7; LDL Cholesterol,Direct 152 mg/dL (50-130)
--- NOTE | 2018-06-21 08:32 | Progress Note ---
Assessment and Plan Assessment and plan: Patient is a 47 yo woman with a history of cva w/o residuals, sz disorder, OA, asthma, left nelson palsy who presented to [facility] ED with slurred speech. Slurred speech, tia vs CVA: ordered mri brain, treat with antiplt and statin Dyslipidemia, LDL 152: treat with statin Morbid obesity, bmi 40.3: licensed professional counselor on safe weight reduction H/o seizure; continue keppra DVT/GI ppx full code mri/mra brain, us carotid pending. History Interval history: Patient was seen and examined. Follow-up on current diagnosis of slurred speech. Overnight uneventful. Patient denies any chest pain, shortness breath, nausea/vomiting or severe headaches. Imaging, nursing note, chart, labs and old chart reviewed. Discussed with patient. Hospitalist Physical - Physical exam Narrative exam: GEN: WDWN, NAD, Awake, Alert, Orientated HEENT: NCAT, EOMI, PERRL, OP Clear NECK: supple, no adenopathy, no thyromegaly, no JVD CVS/HEART: RRR, normal S1S2, pulses present bilaterally CHEST/LUNGS: CTA B, Symmetrical chest expansion, good air entry bilaterally GI/Abdomen: soft, NTND, good bowel sounds, no guarding or rebound /Bladder: no suprapubic tenderness, no CVA or paraspinal tenderness EXT/Skin: no c/c/e, no obvious rash MSK: FROM x 4 Neuro: CN 2-12 grossly intact except facial droop, no new focal deficits, Psych: calm - Constitutional Vitals: Temp Pulse Resp BP Pulse Ox 98.6 F 80 20 121/86 97 06/21/18 05:42 06/21/18 05:42 06/21/18 05:42 06/21/18 05:42 06/21/18 05:42 General appearance: Present: no acute distress, well-nourished, other (left facial palsy-lower motor neuron type. Unable to open left upper eyelid) Results - Labs CBC & Chem 7: 06/21/18 05:37 06/21/18 05:37 Labs: Laboratory Last Values WBC 4.2 K/mm3 (4.5-11.0) L 06/21/18 05:37 RBC 4.10 M/mm3 (3.65-5.03) 06/21/18 05:37 Hgb 11.9 gm/dl (10.1-14.3) 06/21/18 05:37 Hct 35.8 % (30.3-42.9) 06/21/18 05:37 MCV 87 fl (79-97) 06/21/18 05:37 MCH 29 pg (28-32) 06/21/18 05:37 MCHC 33 % (30-34) 06/21/18 05:37 RDW 15.5 % (13.2-15.2) H 06/21/18 05:37 Plt Count 297 K/mm3 (140-440) 06/21/18 05:37 Lymph % (Auto) 30.1 % (13.4-35.0) 06/21/18 05:37 [place] % (Auto) 7.5 % (0.0-7.3) H 06/21/18 05:37 Eos % (Auto) 1.7 % (0.0-4.3) 06/21/18 05:37 Baso % (Auto) 0.5 % (0.0-1.8) 06/21/18 05:37 Lymph # 1.3 K/mm3 (1.2-5.4) 06/21/18 05:37 [place] # 0.3 K/mm3 (0.0-0.8) 06/21/18 05:37 Eos # 0.1 K/mm3 (0.0-0.4) 06/21/18 05:37 Baso # 0.0 K/mm3 (0.0-0.1) 06/21/18 05:37 Seg Neutrophils % 60.2 % (40.0-70.0) 06/21/18 05:37 Seg Neutrophils # 2.5 K/mm3 (1.8-7.7) 06/21/18 05:37 PT 13.5 Sec. (12.2-14.9) 06/20/18 08:11 INR 0.97 (0.87-1.13) 06/20/18 08:11 APTT 26.9 Sec. (24.2-36.6) 06/20/18 08:11 Thrombin Time 17.2 Sec. (15.1-19.6) 06/20/18 08:11 Sodium 138 mmol/L (137-145) 06/21/18 05:37 Potassium 3.9 mmol/L (3.6-5.0) 06/21/18 05:37 Chloride 103.5 mmol/L (98-107) 06/21/18 05:37 Carbon Dioxide 26 mmol/L (22-30) 06/21/18 05:37 Anion Gap 12 mmol/L 06/21/18 05:37 BUN 7 mg/dL (7-17) 06/21/18 05:37 Creatinine 0.6 mg/dL (0.7-1.2) L 06/21/18 05:37 Estimated GFR > 60 ml/min 06/21/18 05:37 BUN/Creatinine Ratio 12 % 06/21/18 05:37 Glucose 107 mg/dL (65-100) H 06/21/18 05:37 POC Glucose 139 (70-105) H 06/20/18 07:59 Hemoglobin A1c 5.5 % (4-6) 06/20/18 19:29 Calcium 8.4 mg/dL (8.4-10.2) 06/21/18 05:37 Total Bilirubin 0.60 mg/dL (0.1-1.2) 06/21/18 05:37 AST 43 units/L (5-40) H 06/21/18 05:37 ALT 32 units/L (7-56) 06/21/18 05:37 Alkaline Phosphatase 58 units/L (35-129) 06/21/18 05:37 Troponin T < 0.010 ng/mL (0.00-0.029) 06/20/18 08:10 Total Protein 6.8 g/dL (6.3-8.2) 06/21/18 05:37 Albumin 3.7 g/dL (3.9-5) L 06/21/18 05:37 Albumin/Globulin Ratio 1.2 % 06/21/18 05:37 Triglycerides 247 mg/dL (2-149) H 06/21/18 05:37 Cholesterol 203 mg/dL (50-199) H 06/21/18 05:37 LDL Cholesterol Direct 152 mg/dL (50-130) H 06/21/18 05:37 HDL Cholesterol 40 mg/dL (40-59) 06/21/18 05:37 Cholesterol/HDL Ratio 5.07 % 06/21/18 05:37 Active Medications - Current Medications Current Medications: Generic Name Dose Route Start Last Admin Trade Name Freq PRN Reason Stop Dose Admin Acetaminophen 650 mg 06/20/18 18:57 Tylenol PO Q4H PRN Pain MILD(1-3)/Fever >100.5/THOMAS Albuterol 2.5 mg 06/20/18 19:45 Proventil IH Q6HRT PRN Shortness Of Breath Clopidogrel Bisulfate 75 mg 06/20/18 20:00 06/20/18 23:46 Plavix PO 75 mg DAILY SABIHA Administration Enoxaparin Sodium 40 mg 06/20/18 16:00 06/20/18 18:45 Lovenox SUB-Q 40 mg QDAY@1000 SABIHA Administration Famotidine 20 mg 06/20/18 22:00 06/20/18 23:46 Pepcid IV 20 mg BID SABIHA Administration Hydromorphone HCl 0.5 mg 06/20/18 18:58 06/21/18 05:47 Dilaudid IV 0.5 mg Q3H PRN Administration Pain , Severe (7-10) Dextrose/Sodium Chloride 1,000 mls @ 75 mls/hr 06/20/18 19:00 06/20/18 23:37 D5/0.45ns IV 06/21/18 10:00 75 mls/hr DIRECT SABIHA Administration Levetiracetam 750 mg 06/20/18 22:00 06/20/18 23:46 Keppra PO 750 mg BID SABIHA Administration Metoclopramide HCl 10 mg 06/20/18 18:58 Reglan IV Q6H PRN Nausea And Vomiting Ondansetron HCl 4 mg 06/20/18 18:57 Zofran IV Q8H PRN Nausea And Vomiting Oxycodone/Acetaminophen 1 tab 06/20/18 18:58 Percocet 5/325 PO Q6H PRN Pain, Moderate (4-6) Pravastatin Sodium 40 mg 06/20/18 22:00 06/20/18 23:45 Pravachol PO 40 mg QHS SABIHA Administration Sodium Chloride 10 ml 06/20/18 22:00 06/20/18 23:47 Sodium Chloride Flush Syringe 10 Ml IV 10 ml BID SABIHA Administration Sodium Chloride 10 ml 06/20/18 18:57 Sodium Chloride Flush Syringe 10 Ml IV PRN PRN LINE FLUSH Sodium Chloride 10 ml 06/20/18 19:02 Sodium Chloride Flush Syringe 10 Ml IV PRN PRN LINE FLUSH
--- NOTE | 2018-06-21 09:42 | Vascular Lab Report ---
PROCEDURE: VL CAROTID DUPLEX BILAT TECHNIQUE: Carotid ultrasound. Degree of carotid stenosis calculated by indirect methods via the peak systolic velocities of the ICA and CCA and reference with the society of Radiologist and Ultrasound consensus conference radiology 2003. HISTORY: stroke COMPARISONS: None currently available. FINDINGS: Note: Measurement of carotid stenosis is based on flow velocity values that correlate with the [place] Symptomatic Carotid Endarterectomy Trial (NASCET) based stenosis criteria using the internal carotid artery diameter as the denominator for stenosis calculation. RIGHT CCA, ICA, and ECA (cm/s): 90, 62, and 77. Ratio = 0.69. LEFT CCA, ICA, and ECA (cm/s): 81, 74, and 58. Ratio = 0.91. Plaque in both carotid bifurcations and ICAs. 16-49% stenosis. Both vertebral arteries demonstrate antegrade flow. Normal spectral rhythm is identified. IMPRESSION: * No hemodynamically significant (>50%) stenosis noted based on the ratios, velocities, and color Do ppler images. This document is electronically signed by Claudy Renteria MD., June 21 2018 09:40:01 AM ET
[2018-06-21] MEDS: KEPPRA PO SCH (11:57)
[2018-06-21] MEDS: LOVENOX SUB-Q SCH (11:58)
[2018-06-21] MEDS: PLAVIX PO SCH (11:58)
[2018-06-21] MEDS: PEPCID IV SCH (11:58)
[2018-06-21] MEDS: SODIUM CHLORIDE FLUSH SYRINGE 10 ML IV SCH (11:59)
--- NOTE | 2018-06-21 13:52 | Magnetic Resonance Report ---
MRA HEAD WITHOUT CONTRAST: 06/21/18 CLINICAL: Slurred speech. TECHNIQUE: Axial 3-D [id number] MR angiography of the [place] with review of axial source images. FINDINGS: Intact [place] with no aneurysm, stenosis or occlusion. Symmetric blood flow in the anterior, middle and posterior cerebral arteries. Normal basilar and vertebral arteries. IMPRESSION: Normal study.
--- NOTE | 2018-06-21 13:52 | Magnetic Resonance Report ---
MRI BRAIN WITHOUT CONTRAST: 06/21/18 CLINICAL: Stroke. Slurred speech. TECHNIQUE: Axial diffusion, T1, T2, gradient echo T2*, coronal and axial FLAIR and sagittal T1 sequences on a 1.5 Jenn magnet. FINDINGS: Normal ventricles and sulci. No restricted diffusion. No abnormal signal on any sequence. No mass or mass effect. No hemorrhage, edema or extra-axial collection. Normal pituitary and optic chiasm. The brainstem and cerebellum are normal. Intact vascular flow voids. Normal sinuses. The orbits, and soft tissues are normal. Normal calvarium and skull base. IMPRESSION: Normal study.
--- NOTE | 2018-06-21 17:09 | Consultation ---
History of Present Illness Consult date: 06/21/18 Chief complaint: trouble with speech, not feeling well History of present illness: This is a 47 YO F who presented to the ED after having several hours of slurred speech and not feeling well. Pt reported a history of stroke and seizure(MRI no rmal) and is supposed to be taking Keppra but reports that she has not taken it in over a month because of financial reasons. Pt reports daily"spells" where she does not feel well and has trouble with her speech. She denied other recent illness, etc. Past History Past Medical History: seizures, stroke Past Surgical History: No surgical history Social history: Family history: hypertension Medications and Allergies Allergies Allergy/AdvReac Type Severity Reaction Status Date / Time ibuprofen [From Motrin] AdvReac Unknown Verified 03/27/15 05:59 Home Medications Medication Instructions Recorded Confirmed Last Taken Type ALBUTEROL Inhaler (OR & NICU) 2 puff IH QID PRN #1 inha 03/10/18 06/20/18 Unknown Rx [ProAir HFA Inhaler] Clopidogrel [Plavix] 75 mg PO DAILY #30 tablet 03/10/18 06/20/18 Unknown Rx Pravastatin [Pravachol] 40 mg PO QHS #30 tablet 03/10/18 06/20/18 Unknown Rx levETIRAcetam [Keppra TAB] 750 mg PO BID 06/20/18 06/20/18 Unknown History Active Meds: Active Medications Acetaminophen (Tylenol) 650 mg PO Q4H PRN PRN Reason: Pain MILD(1-3)/Fever >100.5/THOMAS Albuterol (Proventil) 2.5 mg IH Q6HRT PRN PRN Reason: Shortness Of Breath Atorvastatin Calcium (Lipitor) 40 mg PO QHS [facility] Clopidogrel Bisulfate (Plavix) 75 mg PO DAILY [facility] Last Admin: 06/21/18 11:58 Dose: 75 mg Documented by: Enoxaparin Sodium (Lovenox) 40 mg SUB-Q QDAY@1000 [facility] Last Admin: 06/21/18 11:58 Dose: 40 mg Documented by: Famotidine (Pepcid) 20 mg IV BID [facility] Last Admin: 06/21/18 11:58 Dose: 20 mg Documented by: Hydromorphone HCl (Dilaudid) 0.5 mg IV Q3H PRN PRN Reason: Pain , Severe (7-10) Last Admin: 06/21/18 05:47 Dose: 0.5 mg Documented by: Levetiracetam (Keppra) 750 mg PO BID [facility] Last Admin: 06/21/18 11:57 Dose: 750 mg Documented by: Metoclopramide HCl (Reglan) 10 mg IV Q6H PRN PRN Reason: Nausea And Vomiting Ondansetron HCl (Zofran) 4 mg IV Q8H PRN PRN Reason: Nausea And Vomiting Oxycodone/Acetaminophen (Percocet 5/325) 1 tab PO Q6H PRN PRN Reason: Pain, Moderate (4-6) Last Admin: 06/21/18 12:57 Dose: 1 tab Documented by: Sodium Chloride (Sodium Chloride Flush Syringe 10 Ml) 10 ml IV BID [facility] Last Admin: 06/21/18 11:59 Dose: 10 ml Documented by: Sodium Chloride (Sodium Chloride Flush Syringe 10 Ml) 10 ml IV PRN PRN PRN Reason: LINE FLUSH Sodium Chloride (Sodium Chloride Flush Syringe 10 Ml) 10 ml IV PRN PRN PRN Reason: LINE FLUSH Review of Systems Neurological: change in speech Physical Examination - Vital Signs Vital Signs: Vital Signs Pulse 100 H 06/20/18 08:08 - EENT EENT: Present: mucous membranes moist - Respiratory Respiratory: Present: lungs clear, normal breath sounds - Cardiovascular Cardiovascular: Present: regular rate - Gastrointestinal Gastrointestinal: Present: normoactive bowel sounds - Integumentary Integumentary: Present: normal - Neurologic Cranial nerve examination: PERRL, EOMI, VFF, face symmetric (when pt is distracted she moves her mouth normally), tongue midline Speech examination: other (speech is not normal but does not appear to be a physiologic deficit) Motor examination - right side: 5: biceps, triceps, wrist flexion, wrist extension, finance attorney, hip flexors, knee extensors, dorsiflexion, toe extension (EHL), plantarflexion Motor examination - left side: 55: biceps, triceps, wrist flexion, wrist extension, finance attorney, hip flexors, knee extensors, dorsiflexion, toe extension (EHL), plantarflexion Detailed sensory examination: light touch, temperature Reflexes: 1+: ankle, bicep, knee, tricep Results - Laboratory Findings CBC and BMP: 06/21/18 05:37 06/21/18 05:37 Abnormal Lab Findings: Abnormal Labs 06/20/18 06/20/18 06/20/18 07:59 08:10 08:11 WBC RDW 15.6 H [place] % (Auto) 7.9 H Creatinine 0.5 L Glucose 143 H POC Glucose 139 H AST Albumin Triglycerides Cholesterol LDL Cholesterol Direct 06/21/18 06/21/18 05:37 05:37 WBC 4.2 L RDW 15.5 H [place] % (Auto) 7.5 H Creatinine 0.6 L Glucose 107 H POC Glucose AST 43 H Albumin 3.7 L Triglycerides 247 H Cholesterol 203 H LDL Cholesterol Direct 152 H - Diagnostic Findings Additional findings: MRI/A reviewed- no rmal bvrain- no signs of previous surgery or encephalomalacia noted Assessment and Plan This is a 47 YO F with intermittant slurred speech, ? history of seizure. could be seizure as pt reports non compliance with Keppra for at least 1 month prior to admission. Pt with non physiologic facial weakness on the left. This clears when pt is distracted. Also suspect that speech changes are not physiologic. Recommend: Reviewed MRI/A brain- normal Agree with continuing Keppra 750 mg BID. Needs case management eval to see if she qualifies for help with meds outpatient. Would benefit from ambulatory EEG outpatient as well to determine if these events are truly seizure. Doubt that routine in house EEG will be helpful. PT eval for gait, pt reports feeling unsteady at times Continue care for all medical issues as you are doing No further neuro work up planned, pt can follow outpatient once deemed medically stable. Thank you for this consult. Please call with questions.
--- NOTE | 2018-06-21 17:23 | Discharge Summary ---
Providers - Providers Date of Admission: 06/20/18 15:46 Date of discharge: 06/21/18 Attending physician: HUSSEIN ABBOTT 06/20/18 18:58 Consult to Physician [CONS] Routine Comment: Consulting Provider: LAMONTE PONCE Physician Instructions: Reason For Exam: TIA 06/20/18 19:02 Occupational Therapy Evaluate and Treat [CONS] Routine Comment: Reason For Exam: Neuro deficits 06/20/18 19:03 Speech Therapy Evaluation and Treat [CONS] Routine Reason For Exam: swallow eval 06/20/18 19:05 Physical Therapy Evaluation and Treat [CONS] Routine Comment: Reason For Exam: Neuro deficits [facility] Condition: Stable Hospital course: Patient is a 47 yo woman with a history of cva w/o residuals, sz disorder, OA, asthma, left nelson palsy who presented to [facility] ED with slurred speech. Slurred speech, suspect TIA with CVA ruled out with negative MRI/mra/carotid u/s all unremarkable: ordered mri brain, treat with antiplt and statin Dyslipidemia, LDL 152: treat with statin Morbid obesity, bmi 40.3: insurance counselor on safe weight reduction H/o seizure; continue keppra, insurance counselor on compliance DVT/GI ppx full code Disposition: DC-01 TO HOME OR SELFCARE Time spent for discharge: 35 minutes Core Measure Documentation - Palliative Care Palliative Care/ Comfort Measures: Not Applicable - Core Measures Any of the following diagnoses?: none - VTE Discharge Requirements Deep Vein Thrombosis/Pulmonary Embolism Present on Admission: No Has pt received <5 days of overlap therapy or INR<2.0: No Anticoagulant overlap therapy prescribed at discharge: No Contraindication No Overlap Therapy order at DC: Not Indicated Exam - Physical Exam Narrative exam: GEN: WDWN, NAD, Awake, Alert, Orientated HEENT: NCAT, EOMI, PERRL, OP Clear NECK: supple, no adenopathy, no thyromegaly, no JVD CVS/HEART: RRR, normal S1S2, pulses present bilaterally CHEST/LUNGS: CTA B, Symmetrical chest expansion, good air entry bilaterally GI/Abdomen: soft, NTND, good bowel sounds, no guarding or rebound /Bladder: no suprapubic tenderness, no CVA or paraspinal tenderness EXT/Skin: no c/c/e, no obvious rash MSK: FROM x 4 Neuro: CN 2-12 grossly intact except facial droop, no new focal deficits, Psych: calm - Constitutional Vitals: Temp Pulse Resp BP Pulse Ox 97.9 F 89 20 116/80 96 06/21/18 11:49 06/21/18 11:49 06/21/18 11:49 06/21/18 11:49 06/21/18 11:49 Plan Activity: other (no strenous activity ) Diet: low salt Follow up with: [facility] BRITTANY [Primary Care Provider] - 3-5 Days LAMONTE PONCE MD [Staff Physician] - 7 Days Prescriptions: RX: AtorvaSTATin [Lipitor] 40 mg PO QHS #30 tablet RX: levETIRAcetam [Keppra TAB] 750 mg PO BID #60 tablet RX: oxyCODONE /ACETAMINOPHEN [Percocet 5/325 mg] 1 tab PO Q6H PRN #15 tablet PRN Reason: Pain , Severe (7-10) RX: Clopidogrel [Plavix] 75 mg PO DAILY #30 tablet
[2018-06-21 18:05] VITALS: BP 104/75
[2018-06-21] MEDS ORDERED: CHLORASEPTIC MM PRN (19:23)
== END 2018-06-21 09:15 | disposition home or self-care (01) | DRG 69 ==
LOC: ED 07:47 → 3A 15:46
PROVIDERS: ADMIT Internal Medicine; ATTEND Internal Medicine
DX: G45.9 Transient cerebral ischemic attack, unspecified (principal); Z68.41 Body mass index [BMI] 40.0-44.9, adult; R47.1 Dysarthria and anarthria; M19.90 Unspecified osteoarthritis, unspecified site; J45.909 Unspecified asthma, uncomplicated; G51.0 Bell's palsy; G40.909 Epilepsy, unspecified, not intractable, without status epilepticus; R07.9 Chest pain, unspecified; E78.2 Mixed hyperlipidemia; E66.01 Morbid (severe) obesity due to excess calories
CPT/HCPCS: 36415; 70450; 70544; 70551; 80048; 80053; 80061; 82962; 83036; 84484; 85025; 85610; 85670; 85730; 93005; 93010; 93880; G0378; A9270-GY; J1170; J1650; J2405

== ENCOUNTER 2019-04-27 00:39 | Emergency (ER) | payer SELFPAY ==
[2019-04-27 01:20] LABS: Basophils % (Auto) 0.6 % (0.0-1.8); Eosinophils % (Auto) 0.4 % (0.0-4.3); Hematocrit 34.1 % (30.3-42.9); Hemoglobin 10.9 gm/dl (10.1-14.3); Lymphocytes # (Auto) 2.6 K/mm3 (1.2-5.4); Lymphocytes % (Auto) 41.9 % (13.4-35.0); Mean Corpuscular HGB Conc 32 % (30-34); Mean Corpuscular Volume 76 fl (79-97); Monocytes # (Auto) 0.3 K/mm3 (0.0-0.8); Monocytes % (Auto) 4.9 % (0.0-7.3); Platelet Count 385 K/mm3 (140-440); Red Cell Distribution Width 18.8 % (13.2-15.2)
[2019-04-27 01:53] LABS: BUN/Creatinine Ratio 14; Blood Urea Nitrogen 11 mg/dL (7-17); Hemolysis Index 3
[2019-04-27] MEDS ORDERED: LORazepam 2 MG/ML VIAL IM PRN (02:37)
[2019-04-27] MEDS ORDERED: ACETAMINOPHEN 325 MG TAB PO PRN (02:37)
[2019-04-27] MEDS ORDERED: LORazepam 2 MG/ML VIAL IV PRN (02:38)
[2019-04-27] MEDS ORDERED: chlordiazePOXIDE 25 MG CAP PO PRN ×2 (02:38)
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
[2019-04-27] MEDS: levETIRAcetam 500 MG TAB PO SCH ×3 (03:00→23:50)
[2019-04-27] MEDS: CLOPIDOGREL 75 MG TAB PO SCH (11:46)
[2019-04-27] MEDS: THIAMINE 100 MG TAB PO SCH (11:46)
[2019-04-27] MEDS: FOLIC ACID 1 MG TAB PO SCH (11:46)
[2019-04-27 13:02] LABS: Bilirubin,Urine NEG (Negative); Blood,Urine NEG (Negative); Color,Urine Yellow (Yellow); Protein,Urine <15 mg/dL mg/dL (Negative); RBC,Urine < 1.0 /HPF (0.0-6.0); Urobilinogen,Urine < 2.0 mg/dL (<2.0)
[2019-04-27 13:12] LABS: WBC,Urine < 1.0 /HPF (0.0-6.0)
[2019-04-27 13:19] LABS: Amphetamine Screen,Urine PRESUMPTIVE NEGATIVE; Benzodiazepines Screen,Urine PRESUMPTIVE NEGATIVE; Cannabinoid Screen,Urine PRESUMPTIVE NEGATIVE; Cocaine Screen,Urine PRESUMPTIVE NEGATIVE; Methadone Screen,Urine PRESUMPTIVE NEGATIVE; Opiate Screen,Urine PRESUMPTIVE NEGATIVE
[2019-04-27] MEDS ORDERED: ONDANSETRON 4 MG ODT TAB ONE (17:42)
[2019-04-27] MEDS ORDERED: ONDANSETRON 4 MG ODT TAB PO ONE (17:47)
[2019-04-28] MEDS: FOLIC ACID 1 MG TAB PO SCH (11:15)
[2019-04-28] MEDS: levETIRAcetam 500 MG TAB PO SCH (11:15)
[2019-04-28] MEDS: THIAMINE 100 MG TAB PO SCH (11:15)
[2019-04-28] MEDS: CLOPIDOGREL 75 MG TAB PO SCH (11:15)
--- NOTE | 2019-04-28 14:30 | Consultation ---
History of Present Illness - Reason for Consult Consult date: 04/28/19 Reason for consult: psychiatric assessment - History of Present Psychiatric Illness Ms. Whitfield is a 48-year-old -Burmese female, the patient is alert oriented x3, she is dressed appropriately for the occasion she maintains eye contact she is able to make her needs known. The patient reported that her took her to the emergency room because she got scared the patient stated, "I think I had too much alcohol yesterday I was not thinking straight I just came off of the phone with my son he was stressing me out because he is in nursing home and I just make a bad judgment by saying if I keep doing these things I would not want to be here". The patient states, "I would never kill myself i have my kids and my grandkids to live for I love my life and my ". The patient denies homicidal ideations. The patient denies visual or auditory hallucination. The patient reports that she gets depressed at times but not with intention of hurting herself, the patient stated I have anxiety and depression sometimes I think I get depressed because I think, going through menopause. Patient reports that she has not been sleeping well. The patient reports that she has never taken any medication for her depression and anxiety and is requesting to have something to help. A clinic or outpatient setting is recommended. The patient is able to articulate needs is motivated for compliance and to medication regiment patient is willing and able to participate in outpatient treatment for alcohol abuse. PAST PSYCHIATRIC HISTORY: Diagnoses: Depression Suicide attempts or Self-harm behavior: Denies Prior psychiatric hospitalizations: Denies Substance Abuse history: Denies Previous psychiatric medications tried: Denies Outpatient treatment: Denies PAST MEDICAL HISTORY: Family Psychiatric History None reported or documented SOCIAL HISTORY Marital Status: Living Arrangements: Employment Status: Unemployed Access to guns/weapons: Denies Education: 12th grade History of Abuse: Denies Legal History: Denies ROS: Constitutional: Negative for weight loss ENT: Negative for stridor Respiratory: Negative for cough or hemoptysis All other systems reviewed and are negative MENTAL STATUS General Appearance and Behavior: age appropriate, good eye contact, cooperative with questioning and polite Cooperation: Cooperative Psychomotor Behavior: within normal limits Mood: OK Affect and affective range: Congruent with stated mood Thought Process: Fluent/Logical and Goal-directed Thought Content: Within reality Speech: Normal volume and Regular rate and rhythm Intellectual Functioning Average Suicidal Ideation: Denies SI Homicidal Ideation: Denies HI Impulse Control: intact Insight and Judgment: normal insight and judgment Memory: Normal Attention: Normal Orientation: alert and oriented RECOMMENDATIONS MEDICATIONS: start lexapro 10mg daily Risks, benefits and alternatives of medications discussed with the patient, questions answered and consent obtained from patient. PSYCHOTHERAPY: Supportive psychotherapy provided MEDICAL: Per primary team DELIRIUM PRECAUTIONS: Please re-orient patient frequently, keep lights on during the day, and minimize benzodiazepines and opiates as these medications could worsen patient's confusion. TYRE BUILDER: DISPOSITION: no indication for acute inpatient psychiatric hospitalization at this time,The patient should be complaint with medications, not use drugs, and not drink alcohol. The patient understands that if suicidal, homicidal or endangering feelings arise he should seek assistance including but not limited to calling 911, the crisis hotline, and the emergency room. Follow up with outpatient psychiatry and primary doctor in 7 to 14 days LEGAL STATUS: d/c 1013 FOLLOW-UP: sign off Medications and Allergies Allergies Allergy/AdvReac Type Severity Reaction Status Date / Time ibuprofen [From Motrin] AdvReac Unknown Verified 03/27/15 05:59 Home Medications Medication Instructions Recorded Confirmed Last Taken Type Acetaminophen [Acetaminophen TAB] 650 mg PO Q4H PRN #15 tablet 06/21/18 Unknown Rx AtorvaSTATin [Lipitor] 40 mg PO QHS #30 tablet 06/21/18 Unknown Rx Clopidogrel [Plavix] 75 mg PO DAILY #30 tablet 06/21/18 Unknown Rx levETIRAcetam [Keppra TAB] 750 mg PO BID #60 tablet 06/21/18 Unknown Rx oxyCODONE /ACETAMINOPHEN [Percocet 1 tab PO Q6H PRN #15 tablet 06/21/18 Unknown Rx 5/325 mg] Active Meds: Active Medications Acetaminophen (Tylenol) 650 mg PO Q4H PRN PRN Reason: Pain MILD(1-3)/Fever >100.5/THOMAS Last Admin: 04/27/19 17:48 Dose: 650 mg Documented by: Atorvastatin Calcium (Lipitor) 40 mg PO QHS [facility] Last Admin: 04/27/19 23:50 Dose: 40 mg Documented by: Chlordiazepoxide HCl (Librium) 50 mg PO Q1HR PRN PRN Reason: CIWA-Ar 8-15 Chlordiazepoxide HCl (Librium) 100 mg PO Q1HR PRN PRN Reason: CIWA-Ar 16-25 Clopidogrel Bisulfate (Plavix) 75 mg PO DAILY [facility] Last Admin: 04/28/19 11:15 Dose: 75 mg Documented by: Folic Acid (Folvite) 1 mg PO QDAY [facility] Last Admin: 04/28/19 11:15 Dose: 1 mg Documented by: Levetiracetam (Keppra) 750 mg PO BID [facility] Last Admin: 04/28/19 11:15 Dose: 750 mg Documented by: Lorazepam (Ativan) 2 mg IM Q4HR PRN PRN Reason: Agitation Last Admin: 04/27/19 20:15 Dose: 2 mg Documented by: Lorazepam (Ativan) 4 mg IV Q15MIN PRN PRN Reason: CIWA-Ar >25 Thiamine HCl (Vitamin B-1) 100 mg PO QDAY [facility] Last Admin: 04/28/19 11:15 Dose: 100 mg Documented by: Mental Status Exam - Vital signs Last Vital Signs Temp 98.4 F 04/28/19 07:54 Pulse 98 H 04/28/19 07:54 Resp 20 04/28/19 07:54 BP 131/88 04/28/19 07:54 Pulse Ox 97 04/28/19 07:54 Results Result Diagrams: 04/27/19 00:58 04/27/19 00:58 All other labs normal.
[2019-04-28 14:33] VITALS: BP 143/93
[2019-04-28] MEDS ORDERED: busPIRone 5 MG TAB PO SCH (22:00)
[2019-04-29] MEDS ORDERED: ESCITALOPRAM 10 MG TAB PO SCH (10:00)
== END 2019-04-28 16:26 | disposition home or self-care (01) ==
LOC: ED 00:39
DX: F10.129 Alcohol abuse with intoxication, unspecified (principal); R45.851 Suicidal ideations; Z86.73 Personal history of transient ischemic attack (TIA), and cerebral infarction without residual deficits; M19.90 Unspecified osteoarthritis, unspecified site; J45.909 Unspecified asthma, uncomplicated
CPT/HCPCS: 36415; 80048; 80307; 81001; 82550; 83735; 84703; 85025; 96372; 99284; A9270; J2060; 80320; G0480; Q0162

== ENCOUNTER 2020-09-12 19:57 | Emergency (ER) | payer SELFPAY ==
[2020-09-12] MEDS ORDERED: ASPIRIN 325 MG TAB PO ONE (20:20)
[2020-09-12 20:41] LABS: Basophils # (Auto) 0.1 K/mm3 (0.0-0.1); Basophils % (Auto) 0.7 % (0.0-1.8); Eosinophils # (Auto) 0.1 K/mm3 (0.0-0.4); Eosinophils % (Auto) 1.2 % (0.0-4.3); Hematocrit 34.8 % (30.3-42.9); Lymphocytes # (Auto) 1.3 K/mm3 (1.2-5.4); Lymphocytes % (Auto) 14.6 % (13.4-35.0); Mean Corpuscular HGB Conc 35 % (30-34); Mean Corpuscular Volume 101 fl (79-97); Monocytes # (Auto) 0.4 K/mm3 (0.0-0.8); Monocytes % (Auto) 4.4 % (0.0-7.3); Platelet Count 254 K/mm3 (140-440); Red Blood Count 3.46 M/mm3 (3.65-5.03); Red Cell Distribution Width 17.7 % (13.2-15.2)
[2020-09-12 21:03] LABS: Alanine Aminotransferase 44 units/L (7-56); Albumin 4.3 g/dL (3.9-5); Blood Urea Nitrogen 4 mg/dL (7-17); Calcium 9.6 mg/dL (8.4-10.2); Hemolysis Index 7
[2020-09-12 21:07] LABS: BUN/Creatinine Ratio 8
[2020-09-12] MEDS ORDERED: oxyCODONE /ACETAMINOPHEN 5-325MG TAB PO ONE (23:40)
[2020-09-12] MEDS ORDERED: ALUM-MAG HYDROXIDE-SIMETHICONE 200-200-20MG/5ML ORAL LIQD 30 ML PO ONE (23:40)
[2020-09-12] MEDS ORDERED: LIDOCAINE VISCOUS 2% 15 ML ORAL LIQD PO ONE (23:40)
--- NOTE | 2020-09-12 23:42 | Emergency Department Report ---
ED Chest Pain HPI - General Chief Complaint: Chest Pain Stated Complaint: CHEST PAIN/LOSS OF APETITE Time Seen by Provider: 09/12/20 23:27 Source: patient, family Mode of arrival: Wheelchair Limitations: No Limitations - History of Present Illness Initial Comments: Chief complaint: Chest pain abdominal pain. HPI: This is a 49-year-old female with history of CVA, seizure, COPD, asthma, bipolar disorder presents with chest pain abdominal pain for the past week. She has had poor appetite. Patient has burning sensation in her chest radiating to the epigastric region. Worse with p.o. intake. She also said nausea vomiting diarrhea. She denies fever. Denies shortness of breath. Denies cough. MD Complaint: chest pain -: Gradual, week(s) (1 week) Onset: after eating Pain Location: substernal Pain Radiation: abdomen Severity: moderate Quality: other (Burning) Consistency: constant Improves With: nothing Worsens With: nothing re: nausea, vomting Treatments Prior to Arrival: none - Related Data Previous Rx's Medication Instructions Recorded Last Taken Type Acetaminophen [Acetaminophen TAB] 650 mg PO Q4H PRN #15 tablet 06/21/18 Unknown Rx AtorvaSTATin [Lipitor] 40 mg PO QHS #30 tablet 06/21/18 Unknown Rx Clopidogrel [Plavix] 75 mg PO DAILY #30 tablet 06/21/18 Unknown Rx levETIRAcetam [Keppra TAB] 750 mg PO BID #60 tablet 06/21/18 Unknown Rx oxyCODONE /ACETAMINOPHEN [Percocet 1 tab PO Q6H PRN #15 tablet 06/21/18 Unknown Rx 5/325 mg] Escitalopram [Lexapro] 10 mg PO QDAY #30 tablet 04/28/19 Unknown Rx busPIRone [Buspar] 7.5 mg PO BID #60 tablet 04/28/19 Unknown Rx Famotidine [Acid Controller] 20 mg PO BID 30 Days #60 tablet 09/12/20 Unknown Rx oxyCODONE /ACETAMINOPHEN [Percocet 1 tab PO Q6H PRN #10 tab 09/12/20 Unknown Rx 5/325] Allergies Allergy/AdvReac Type Severity Reaction Status Date / Time ibuprofen [From Motrin] AdvReac Unknown Verified 03/27/15 05:59 Heart Score - HEART Score History: Slightly suspicious EKG: Non-specific Age: < 45 Risk factors: 1-2 risk factors Troponin: < normal limit HEART Score: 2 - EKG Read Time Time EKG Completed: 20:24 EKG Read Time: 20:39 ED Review of Systems ROS: Stated complaint: CHEST PAIN/LOSS OF APETITE Other details as noted in HPI Comment: All other systems reviewed and negative Constitutional: malaise. denies: chills, fever Respiratory: denies: cough, shortness of breath Cardiovascular: chest pain Gastrointestinal: abdominal pain, nausea, vomiting, diarrhea ED Past Medical Hx - Past Medical History Previous Medical History?: Yes Hx CVA: Yes (x 3) Hx Heart Attack/AMI: Yes Hx Sickle Cell Disease: Yes (trait) Hx Arthritis: Yes Hx Seizures: Yes Hx Asthma: Yes Hx COPD: Yes Hx HIV: No Additional medical history: BELLS PALSY (left facial weakness), Brain tumor, lung mass - Surgical History Past Surgical History?: Yes Additional Surgical History: Tubal ligation - Social History Smoking Status: Never Smoker Substance Use Type: Alcohol - Medications Home Medications: Home Medications Medication Instructions Recorded Confirmed Last Taken Type Acetaminophen [Acetaminophen TAB] 650 mg PO Q4H PRN #15 tablet 06/21/18 Unknown Rx AtorvaSTATin [Lipitor] 40 mg PO QHS #30 tablet 06/21/18 Unknown Rx Clopidogrel [Plavix] 75 mg PO DAILY #30 tablet 06/21/18 Unknown Rx levETIRAcetam [Keppra TAB] 750 mg PO BID #60 tablet 06/21/18 Unknown Rx oxyCODONE /ACETAMINOPHEN [Percocet 1 tab PO Q6H PRN #15 tablet 06/21/18 Unknown Rx 5/325 mg] Escitalopram [Lexapro] 10 mg PO QDAY #30 tablet 04/28/19 Unknown Rx busPIRone [Buspar] 7.5 mg PO BID #60 tablet 04/28/19 Unknown Rx Famotidine [Acid Controller] 20 mg PO BID 30 Days #60 tablet 09/12/20 Unknown Rx oxyCODONE /ACETAMINOPHEN [Percocet 1 tab PO Q6H PRN #10 tab 09/12/20 Unknown Rx 5/325] ED Physical Exam - General Limitations: No Limitations General appearance: alert, in no apparent distress - Head Head exam: Present: atraumatic, normocephalic - Eye Eye exam: Present: normal appearance - ENT ENT exam: Present: mucous membranes moist - Neck Neck exam: Present: normal inspection, full ROM - Respiratory Respiratory exam: Present: normal lung sounds bilaterally. Absent: respiratory distress, wheezes, rales, rhonchi - Cardiovascular Cardiovascular Exam: Present: normal rhythm, tachycardia, normal heart sounds. Absent: systolic murmur, diastolic murmur, rubs, gallop - GI/Abdominal GI/Abdominal exam: Present: soft, normal bowel sounds. Absent: distended, tenderness, guarding, rebound - Extremities Exam Extremities exam: Present: normal inspection - Neurological Exam Neurological exam: Present: alert, oriented X3 - Psychiatric Psychiatric exam: Present: normal affect, normal mood - Skin Skin exam: Present: warm, dry, intact, normal color. Absent: rash ED Course Vital Signs 09/12/20 20:11 Temperature 99.2 F Pulse Rate 106 H Respiratory 18 Rate Blood Pressure 149/88 O2 Sat by Pulse 97 Oximetry ED Medical Decision Making - Lab Data Result diagrams: 09/12/20 20:29 09/12/20 20:29 Laboratory Results - last 24 hr 09/12/20 09/12/20 20:29 20:29 WBC 9.0 RBC 3.46 L Hgb 12.0 Hct 34.8 MCV 101 H MCH 35 H MCHC 35 H RDW 17.7 H Plt Count 254 Lymph % (Auto) 14.6 Wetzel % (Auto) 4.4 Eos % (Auto) 1.2 Baso % (Auto) 0.7 Lymph # (Auto) 1.3 Wetzel # (Auto) 0.4 Eos # (Auto) 0.1 Baso # (Auto) 0.1 Seg Neutrophils % 79.1 H Seg Neutrophils # 7.1 Sodium 136 L Potassium 3.2 L Chloride 97.0 L Carbon Dioxide 26 Anion Gap 16 BUN 4 L Creatinine 0.5 L Estimated GFR > 60 BUN/Creatinine Ratio 8 Glucose 128 H Calcium 9.6 Total Bilirubin 1.20 AST 92 H ALT 44 Alkaline Phosphatase 67 Troponin T < 0.010 Total Protein 8.1 Albumin 4.3 Albumin/Globulin Ratio 1.1 - EKG Data -: EKG Interpreted by Me EKG shows normal: sinus rhythm, axis, intervals Rate: tachycardia - EKG Data Interpretation: nonspecific ST-T wave rajwinder 09/12/20 23:43 EKG obtained 2023 EKG interpreted by me Sinus tachycardia rate 100 bpm nl axis nl intervals diffuse T wave flattening - Radiology Data Radiology results: report reviewed cxr 2 view: no acute findings - Medical Decision Making Clinical Impression: PUD/GERD rx: famotidine Patient has also had burning pain in feet. Suspect neuropathy vs plantar fasciitis rx: percocet for pain Critical care attestation.: If time is entered above; I have spent that time in minutes in the direct care of this critically ill patient, excluding procedure time. ED Disposition Clinical Impression: GERD (gastroesophageal reflux disease), PUD (peptic ulcer disease), Neuropathy Disposition: - TO HOME OR SELFCARE Is pt being admited?: No Does the pt Need Aspirin: No Condition: Stable Instructions: Peripheral Neuropathy, Gastroesophageal Reflux Disease, Adult, [id number] Prescriptions: Famotidine [Acid Controller] 20 mg PO BID 30 Days #60 tablet oxyCODONE /ACETAMINOPHEN [Percocet 5/325] 1 tab PO Q6H PRN #10 tab PRN Reason: Pain , Severe (7-10) Referrals: KINDRA HERNANDEZ MD [Staff Physician] - 3-5 Days
[2020-09-13] VITALS: BP 137/87
== END 2020-09-13 00:28 | disposition home or self-care (01) ==
LOC: ED 19:57
DX: K21.9 Gastro-esophageal reflux disease without esophagitis (principal); K27.9 Peptic ulcer, site unspecified, unspecified as acute or chronic, without hemorrhage or perforation; G62.9 Polyneuropathy, unspecified; I25.2 Old myocardial infarction; J44.9 Chronic obstructive pulmonary disease, unspecified; Z98.51 Tubal ligation status; Z79.899 Other long term (current) drug therapy; Z86.73 Personal history of transient ischemic attack (TIA), and cerebral infarction without residual deficits; Z86.69 Personal history of other diseases of the nervous system and sense organs; Z88.6 Allergy status to analgesic agent
CPT/HCPCS: 36415; 71045; 80053; 84484; 85025; 93005

== ENCOUNTER 2021-08-08 00:58 | Emergency (ER) | payer SELFPAY ==
[2021-08-08] MEDS ORDERED: ONDANSETRON 4 MG/2 ML INJ IV ONE (01:25)
[2021-08-08] MEDS ORDERED: FAMOTIDINE 20 MG/2 ML INJ IV ONE ×2 (01:25→08:48)
[2021-08-08 02:00] LABS: Basophils # (Auto) 0.2 K/mm3 (0.0-0.1); Basophils % (Auto) 2.4 % (0.0-1.8); Eosinophils % (Auto) 0.1 % (0.0-4.3); Hemoglobin 12.1 gm/dl (10.1-14.3); Lymphocytes # (Auto) 0.7 K/mm3 (1.2-5.4); Lymphocytes % (Auto) 11.4 % (13.4-35.0); Mean Corpuscular HGB Conc 34 % (30-34); Mean Corpuscular Volume 91 fl (79-97); Monocytes # (Auto) 0.3 K/mm3 (0.0-0.8); Monocytes % (Auto) 4.7 % (0.0-7.3); Platelet Count 229 K/mm3 (140-440); Red Blood Count 3.96 M/mm3 (3.65-5.03); Red Cell Distribution Width 16.7 % (13.2-15.2)
[2021-08-08 02:12] LABS: Alanine Aminotransferase 68 units/L (7-56); Blood Urea Nitrogen 10 mg/dL (7-17); Calcium 10.1 mg/dL (8.4-10.2); Hemolysis Index 6
--- NOTE | 2021-08-08 02:13 | XRay Report ---
CHEST 1 VIEW INDICATION / CLINICAL INFORMATION: chest pain. COMPARISON: Chest x-ray 09/12/2020 FINDINGS: SUPPORT DEVICES: None. HEART / MEDIASTINUM: No significant abnormality. LUNGS / PLEURA: Lungs are clear for degree of inspiration and technique utilized. BONES: No significant osseous abnormality. ADDITIONAL FINDINGS: No significant additional findings. IMPRESSION: 1. No active cardiopulmonary disease. Signer Name: Bony Moreau II, MD Signed: 08/08/2021 2:09 AM Workstation Name: [id number]
[2021-08-08 02:22] LABS: BUN/Creatinine Ratio 17
[2021-08-08] MEDS ORDERED: SODIUM CHLORIDE 0.9% 1000 ML 1,000 ML IV ONE (08:44)
[2021-08-08] MEDS ORDERED: ONDANSETRON 4 MG/2 ML INJ ONE (08:48)
--- NOTE | 2021-08-08 09:29 | XRay Report ---
XR chest 1V ap INDICATION / CLINICAL INFORMATION: Chest Pain. COMPARISON: 08/08/2021 FINDINGS: SUPPORT DEVICES: None. HEART /PULMONARY VASCULATURE: No significant abnormality. LUNGS / PLEURA: Lungs are clear. No pneumothorax. ADDITIONAL FINDINGS: No significant additional findings. IMPRESSION: 1. No acute findings. Signer Name: Florentino Perry MD Signed: 08/08/2021 9:25 AM Workstation Name: [id number]
[2021-08-08 10:47] LABS: INR 1.05 (0.87-1.13)
[2021-08-08 12:13] LABS: C-Reactive Protein < 0.30 mg/dL (0.00-1.30)
[2021-08-08] MEDS ORDERED: MORPHINE 2 MG/1 ML INJ IV ONE (13:25)
--- NOTE | 2021-08-08 13:28 | Emergency Department Report ---
ED Chest Pain HPI - General Chief Complaint: Chest Pain Stated Complaint: CHEST PAIN/VOMITING Time Seen by Provider: 08/08/21 08:41 Source: patient, family Mode of arrival: Wheelchair Limitations: No Limitations - History of Present Illness Initial Comments: FAMILY STATES THAT PT HAS BEEN HAVING CP X 3 DAYS WITH SOB. PT ALSO C/O VOMITING X 6 IN PAST 24 HRS Complaint: chest pain -: days(s) Onset: after eating Pain Radiation: none Quality: sharp Consistency: intermittent Improves With: eating Worsens With: nothing - Related Data Previous Rx's Medication Instructions Recorded Last Taken Type Acetaminophen [Acetaminophen TAB] 650 mg PO Q4H PRN #15 tablet 06/21/18 Unknown Rx AtorvaSTATin [Lipitor] 40 mg PO QHS #30 tablet 06/21/18 Unknown Rx Clopidogrel [Plavix] 75 mg PO DAILY #30 tablet 06/21/18 Unknown Rx levETIRAcetam [Keppra TAB] 750 mg PO BID #60 tablet 06/21/18 Unknown Rx oxyCODONE /ACETAMINOPHEN [Percocet 1 tab PO Q6H PRN #15 tablet 06/21/18 Unknown Rx 5/325 mg] Escitalopram [Lexapro] 10 mg PO QDAY #30 tablet 04/28/19 Unknown Rx busPIRone [Buspar] 7.5 mg PO BID #60 tablet 04/28/19 Unknown Rx Famotidine [Acid Controller] 20 mg PO BID 30 Days #60 tablet 09/12/20 Unknown Rx oxyCODONE /ACETAMINOPHEN [Percocet 1 tab PO Q6H PRN #10 tab 09/12/20 Unknown Rx 5/325] Allergies Allergy/AdvReac Type Severity Reaction Status Date / Time ibuprofen [From Motrin] AdvReac Unknown Verified 03/27/15 05:59 Heart Score - HEART Score History: Slightly suspicious EKG: Non-specific Age: 45-65 Risk factors: 1-2 risk factors Troponin: < normal limit HEART Score: 3 - EKG Read Time Time EKG Completed: 01:04 EKG Read Time: 01:04 - Critical Actions Critical Actions: 0-3 pts:0.9-1.7%risk of adverse cardiac event.Candidate for discharge ED Review of Systems ROS: Stated complaint: CHEST PAIN/VOMITING Other details as noted in HPI Constitutional: denies: chills, fever Eyes: denies: eye pain, eye discharge, vision change ENT: denies: ear pain, throat pain Respiratory: denies: cough, shortness of breath, wheezing Cardiovascular: denies: chest pain, palpitations Endocrine: no symptoms reported Gastrointestinal: denies: abdominal pain, nausea, diarrhea Genitourinary: denies: urgency, dysuria, discharge Musculoskeletal: denies: back pain, joint swelling, arthralgia Skin: denies: rash, lesions Neurological: denies: headache, weakness, paresthesias Psychiatric: denies: anxiety, depression Hematological/Lymphatic: denies: easy bleeding, easy bruising ED Past Medical Hx - Past Medical History Hx CVA: Yes (x 3) Hx Heart Attack/AMI: Yes Hx Sickle Cell Disease: Yes (trait) Hx Arthritis: Yes Hx Seizures: Yes Hx Asthma: Yes Hx COPD: Yes Hx HIV: No Additional medical history: BELLS PALSY (left facial weakness), Brain tumor, lung mass - Surgical History Additional Surgical History: Tubal ligation - Social History Smoking Status: Never Smoker Substance Use Type: Alcohol - Medications Home Medications: Home Medications Medication Instructions Recorded Confirmed Last Taken Type Acetaminophen [Acetaminophen TAB] 650 mg PO Q4H PRN #15 tablet 06/21/18 Unknown Rx AtorvaSTATin [Lipitor] 40 mg PO QHS #30 tablet 06/21/18 Unknown Rx Clopidogrel [Plavix] 75 mg PO DAILY #30 tablet 06/21/18 Unknown Rx levETIRAcetam [Keppra TAB] 750 mg PO BID #60 tablet 06/21/18 Unknown Rx oxyCODONE /ACETAMINOPHEN [Percocet 1 tab PO Q6H PRN #15 tablet 06/21/18 Unknown Rx 5/325 mg] Escitalopram [Lexapro] 10 mg PO QDAY #30 tablet 04/28/19 Unknown Rx busPIRone [Buspar] 7.5 mg PO BID #60 tablet 04/28/19 Unknown Rx Famotidine [Acid Controller] 20 mg PO BID 30 Days #60 tablet 09/12/20 Unknown Rx oxyCODONE /ACETAMINOPHEN [Percocet 1 tab PO Q6H PRN #10 tab 09/12/20 Unknown Rx 5/325] ED Physical Exam - General Limitations: No Limitations General appearance: alert, in no apparent distress - Head Head exam: Present: atraumatic, normocephalic - Eye Eye exam: Present: normal appearance - ENT ENT exam: Present: mucous membranes moist - Neck Neck exam: Present: normal inspection - Respiratory Respiratory exam: Present: normal lung sounds bilaterally. Absent: respiratory distress - Cardiovascular Cardiovascular Exam: Present: regular rate, normal rhythm. Absent: systolic murmur, diastolic murmur, rubs, gallop - GI/Abdominal GI/Abdominal exam: Present: soft, normal bowel sounds - Extremities Exam Extremities exam: Present: normal inspection - Back Exam Back exam: Present: normal inspection - Neurological Exam Neurological exam: Present: alert, oriented X3 - Psychiatric Psychiatric exam: Present: normal affect, normal mood - Skin Skin exam: Present: warm, dry, intact, normal color. Absent: rash ED Course Vital Signs 08/08/21 01:18 Temperature 98.6 F Pulse Rate 95 H Respiratory 18 Rate Blood Pressure 131/86 O2 Sat by Pulse 97 Oximetry ED Medical Decision Making - Lab Data Result diagrams: 08/08/21 01:36 08/08/21 01:36 - EKG Data -: EKG Interpreted by Ca EKG shows normal: sinus rhythm Rate: normal - EKG Data Interpretation: nonspecific ST-T wave rajwinder - Radiology Data Radiology results: report reviewed, image reviewed - Medical Decision Making work up negative vss , trop negative pain controlled Critical care attestation.: If time is entered above; I have spent that time in minutes in the direct care of this critically ill patient, excluding procedure time. ED Disposition Clinical Impression: Chest pain, Paresthesia of left upper extremity, GERD (gastroesophageal reflux disease) Disposition: 01 HOME / SELF CARE / HOMELESS Is pt being admited?: No Does the pt Need Aspirin: No Condition: Stable Instructions: Nonspecific Chest Pain, Adult, Peripheral Neuropathy Referrals: KINDRA HERNANDEZ MD [Primary Care Provider] - 3-5 Days
[2021-08-08 15:14] VITALS: BP 148/89
== END 2021-08-08 15:09 | disposition home or self-care (01) ==
LOC: ED 00:58
DX: R07.9 Chest pain, unspecified (principal); R20.2 Paresthesia of skin; K21.9 Gastro-esophageal reflux disease without esophagitis; I21.9 Acute myocardial infarction, unspecified; D57.1 Sickle-cell disease without crisis; Z86.73 Personal history of transient ischemic attack (TIA), and cerebral infarction without residual deficits; M19.90 Unspecified osteoarthritis, unspecified site; R56.9 Unspecified convulsions; J45.909 Unspecified asthma, uncomplicated; Z91.09 Other allergy status, other than to drugs and biological substances; Z79.899 Other long term (current) drug therapy
CPT/HCPCS: 36415; 71045; 80053; 82550; 83690; 83880; 84484; 85025; 85610; 86140; 93005; 96361; 96374; 96375; 99284; J2270; J2405; J3490; J7030